=== PATIENT | female | born 1955 | race Caucasian/White ===

== ENCOUNTER → 2017-08-23 | Outpatient (CLI) | payer MEDICARE ==
[~2017-08-23] MED LIST: ACET65TA; BREO1INH INH; COLA100C2; FLAG500T; IPRASOL4 IN; LEVA500T; METO10TA2; PRED10TA2 PO; PROAAER10 INH; TRAM50TA2
--- NOTE | 2017-08-23 14:56 | REP ---
CHEST, TWO VIEWS: COMPARISON: 07/07/2016. I see no evidence of acute infiltrate. Heart is not enlarged. Mediastinal silhouette is unchanged. Metallic clips are seen in the region of the gastroesophageal junction. There are mild degenerative changes of the spine. IMPRESSION: No acute infiltrate. Signed by Torey Pérez MD 08/23/2017 11:58 A
== END ==
LOC: M LRY 10:05
PROVIDERS: ATTEND Nurse Practitioner Family
DX: R06.02 Shortness of breath (principal)
CPT/HCPCS: 71020; 94640; G0463; J2930

== ENCOUNTER → 2017-09-04 | Outpatient (REF) | payer MEDICARE ==
[2017-09-04 11:38] LABS: MEAN CORPUSCULAR HEMOGLOBIN 28.3 pg (27.0-33.0); MEAN CORPUSCULAR HGB CONC 31.7 g/dl (32.0-36.5); MEAN CORPUSCULAR VOLUME 89.5 fl (80.0-96.0); PLATELET COUNT, AUTOMATED 312 10^3/uL (150-450); RED CELL DISTRIBUTION WIDTH 14.7 % (11.5-14.5); WHITE BLOOD COUNT 8.8 10^3/uL (4.0-10.0)
[2017-09-04 11:51] LABS: ANION GAP 7 MEQ/L (8-16); BLOOD UREA NITROGEN 19 MG/DL (7-18); CALCIUM LEVEL 9.1 MG/DL (8.8-10.2); CARBON DIOXIDE LEVEL 32 MEQ/L (21-32); CHLORIDE LEVEL 102 MEQ/L (98-107); CREATININE FOR GFR 0.64 MG/DL (0.55-1.02); GLOMERULAR FILTRATION RATE > 60.0 (>45); GLUCOSE, FASTING 98 MG/DL (80-110); POTASSIUM SERUM 4.7 MEQ/L (3.5-5.1); SODIUM LEVEL 141 MEQ/L (136-145)
== END ==
LOC: M SFHCLERA 08:30
PROVIDERS: ATTEND Family Medicine
DX: J44.9 Chronic obstructive pulmonary disease, unspecified (principal); R09.81 Nasal congestion; G89.28 Other chronic postprocedural pain; M25.551 Pain in right hip; Z23 Encounter for immunization; Z79.899 Other long term (current) drug therapy

== ENCOUNTER 2017-09-07 07:25 | Observation (INO) | payer MEDICARE ==
[~2017-09-07] VITALS: Ht 157.5 cm; Wt 73.9 kg
[~2017-09-07 07:25] MED LIST changes: -BREO1INH INH; -IPRASOL4 IN; -PRED10TA2 PO; -PROAAER10 INH
[2017-09-07] MEDS ORDERED: BREO1INH INH (08:03)
[2017-09-07] MEDS ORDERED: PROAAER10 INH (08:03)
[2017-09-07] MEDS ORDERED: IPRATROPIUM 0.5MG/ALBUTEROL 2.5MG INH SOL UD 3ML (DUONEB)(J7620) NEB ONE (09:00)
[2017-09-07 09:31] LABS: BASO # 0.1 10^3/uL (0.0-0.2); BASO % 0.6 % (0.0-1.0); EOS # 0.3 10^3/uL (0.0-0.50); EOS % 3.1 % (0.0-3.0); IMMATURE GRANULOCYTE % 1.5 % (0-0); LYMPH % 9.1 % (24.0-44.0); MEAN CORPUSCULAR HEMOGLOBIN 28.3 pg (27.0-33.0); MEAN CORPUSCULAR HGB CONC 32.2 g/dl (32.0-36.5); MEAN CORPUSCULAR VOLUME 87.8 fl (80.0-96.0); MONO # 0.3 10^3/uL (0.0-0.8); MONO % 3.1 % (0.0-5.0); NEUTROPHILS # 8.7 10^3/uL (1.8-7.7); NEUTROPHILS % 82.6 % (36.0-66.0); PLATELET COUNT, AUTOMATED 288 10^3/uL (150-450); RED CELL DISTRIBUTION WIDTH 14.6 % (11.5-14.5); WHITE BLOOD COUNT 10.5 10^3/uL (4.0-10.0)
[2017-09-07 09:40] LABS: INR 0.98
[2017-09-07 09:49] LABS: ANION GAP 6 MEQ/L (8-16); BLOOD UREA NITROGEN 19 MG/DL (7-18); CALCIUM LEVEL 8.6 MG/DL (8.8-10.2); CARBON DIOXIDE LEVEL 28 MEQ/L (21-32); CHLORIDE LEVEL 108 MEQ/L (98-107); CREATININE FOR GFR 0.66 MG/DL (0.55-1.02); GLOMERULAR FILTRATION RATE > 60.0 (>45); GLUCOSE, FASTING 131 MG/DL (80-110); POTASSIUM SERUM 4.3 MEQ/L (3.5-5.1); SODIUM LEVEL 142 MEQ/L (136-145)
--- NOTE | 2017-09-07 09:54 | REP ---
Chest one-view HISTORY: Cough Comparison: 08/23/2017 The lungs are clear. The heart is normal in size. The pulmonary vasculature is normal in appearance. Impression: No acute disease. Signed by Ventura Salinas MD 09/07/2017 09:45 A
[2017-09-07 09:55] LABS: ALBUMIN 3.6 GM/DL (3.2-5.2); ALBUMIN/GLOBULIN RATIO 0.95 (1.00-1.93); ALKALINE PHOSPHATASE 132 U/L (45-117); ALT/SGPT 33 U/L (12-78); AST/SGOT 10 U/L (7-37); BILIRUBIN,DIRECT < 0.1 MG/DL (0.0-0.2); BILIRUBIN,TOTAL 0.2 MG/DL (0.2-1.0); TOTAL PROTEIN 7.4 GM/DL (6.4-8.2)
[2017-09-07 10:07] LABS: ABG BASE EXCESS -3.3 (-2.0-2.0); ABG HCO3 21.9 MEQ/L (22.0-26.0); ABG STANDARD HCO3 21.7 MEQ/L (22.0-26.0); ABG TOTAL CO2 23.2 MEQ/L (23.0-31.0); ABG pH (ARTERIAL) 7.357 UNITS (7.350-7.450)
[2017-09-07] MEDS ORDERED: IPRASOL4 IN (11:58)
[2017-09-07] MEDS ORDERED: DEXTROSE 50% 50 ML SYRINGE IV PRN (12:00)
[2017-09-07] MEDS ORDERED: GLUCOSE 4 GM CHEW TABLET PO PRN (12:00)
[2017-09-07] MEDS ORDERED: GLUCAGON FOR INJ 1 MG VIAL (J1610) SC PRN (12:00)
[2017-09-07] MEDS ORDERED: ACETAMINOPHEN TAB 650MG DOSE (2X325MG) PO PRN (12:00)
[2017-09-07] MEDS ORDERED: IPRATROPIUM 0.5MG/ALBUTEROL 2.5MG INH SOL UD 3ML (DUONEB)(J7620) NEB PRN (12:00)
[2017-09-07 12:49] VITALS: O2SAT 87
[2017-09-07 13:20] VITALS: BP 135/63
[2017-09-07] MEDS: PANTOPRAZOLE 40MG TAB (PROTONIX) PO SCH (13:54)
[2017-09-07] MEDS: IPRATROPIUM 0.5MG/ALBUTEROL 2.5MG INH SOL UD 3ML (DUONEB)(J7620) NEB SCH ×3 (14:15→23:24)
[2017-09-07 16:00] VITALS: BP 131/72
--- NOTE | 2017-09-07 17:37 | HPEPDOC ---
General Date of Admission Sep 07, 2017 at 11:55 Chief Complaint The patient is a 62-year-old female Presented to the ER with complaints of difficulty breathing History of Present Illness Patient is a 62-year-old female with a PMHx of COPD (recently diagnosed), chronic back pain and osteoarthritis who presented to the ER with difficulty breathing and wheezing. Patient noted that she also had productive cough with clear/white colored sputum, no evidence of blood in the sputum. Patient denied any chest pain, palpitations. Denied any fever or chills. Noted that she was recently diagnosed with COPD on , 09/04. She was started on Breo, Proair and an albuterol nebulizer to take at home. Patient noted that over the last 2 days shes been having worsening of her breathing and has not had any resolution with her breathing treatments. Patient denies any nausea, vomiting, abdominal pain, constipation or dysuria. She does note some loose stools. She denies any change in her weight, and notes that her appetite has been normal. Home Medications Scheduled Fluticasone/Vilanterol (Breo Ellipta 100-25 Mcg/INH) 1 Inh Inh, 1 PUFF INH DAILY , (Reported) Scheduled PRN Albuterol Sulfate (Proair Hfa) 108 Mcg/Act Aer, 2 PUFF INH Q4H PRN for SHORTNESS OF BREATH, (Reported) Albuterol/Ipratropium (Ipratropium [place]/Albut 0.5-2.5 (3) mg/3Ml) 1 Jayla Jayla, 1 VIAL IN Q6H PRN for SHORTNESS OF BREATH, (Reported) Allergies Coded Allergies: Aspirin (Verified Adverse Reaction, Mild, VOMITS, 01/05/13) Past Medical History Medical History COPD (recently diagnosed), chronic back pain and osteoarthritis Surgical History section Emergent hysterectomy Gastric ulcer resection Bladder repair Appendectomy, questionable Cholecystectomy Back surgery likely laminectomy Family History - Mother with history of stroke - Father history of cancer, unknown Social History - Denies the use of alcohol or illicit drugs; current smoker of 40 years at 1 pack per day - Denies recent travel or sick contacts - Lives with - 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 No appreciable wheezing can be heard - Abdomen: Soft, Non-distended, Non-tender - Extremities: No lower extremity edema, No calf tenderness - Neuro: No focal motor or sensory deficit - Skin: No visible rashes Laboratory Data Labs 24H Laboratory Tests 2 09/07/17 09:17: Immature Granulocyte % (Auto) 1.5H, White Blood Count 10.5H, Red Blood Count 4.67, Hemoglobin 13.2, Hematocrit 41.0, Mean Corpuscular Volume 87.8, Mean Corpuscular Hemoglobin 28.3, Mean Corpuscular Hemoglobin Concent 32.2, Red Cell Distribution Width 14.6H, Platelet Count 288, Neutrophils (%) (Auto) 82.6H, Lymphocytes (%) (Auto) 9.1L, Monocytes (%) (Auto) 3.1, Eosinophils (%) (Auto) 3.1H, Basophils (%) (Auto) 0.6, Neutrophils # (Auto) 8.7H, Lymphocytes # (Auto) 1.0L, Monocytes # (Auto) 0.3, Eosinophils # (Auto) 0.3, Basophils # (Auto) 0.1, Immature Granulocyte # (Auto) 0.2H, Nucleated Red Blood Cells % (auto) 0.0, Prothrombin Time 13.1, Prothromb Time International Ratio 0.98, Anion Gap 6L, Glomerular Filtration Rate > 60.0, Lactic Acid Level 1.7, Blood Urea Nitrogen 19H, Creatinine 0.66, Sodium Level 142, Potassium Level 4.3, Chloride Level 108H , Carbon Dioxide Level 28, Calcium Level 8.6L, Total Creatine Kinase 29, Aspartate Amino Transf (AST/SGOT) 10, Alanine Aminotransferase (ALT/SGPT) 33, Alkaline Phosphatase 132H, Total Bilirubin 0.2, Direct Bilirubin < 0.1, Creatine Kinase MB 1.1, Creatine Kinase MB Relative Index 3.79, Troponin I < 0.02, Total Protein 7.4, Albumin 3.6, Albumin/Globulin Ratio 0.95L, Thyroid Stimulating Hormone (TSH) 0.355L 09/07/17 09:55: Blood Gas Bicarbonate Standard 21.7L, Arterial Blood pH 7.357, Arterial Blood Partial Pressure CO2 40.0, Arterial Blood Partial Pressure O2 86.0, Arterial Blood Total CO2 23.2, Arterial Blood HCO3 21.9L, Arterial Blood Base Excess - 3.3L, Arterial Blood Oxygen Saturation 96.4 09/07/17 14:47: Total Creatine Kinase 46, Creatine Kinase MB 1.4, Creatine Kinase MB Relative Index 3.04, Troponin I < 0.02 CBC/BMP Laboratory Tests 09/07/17 09:17 Red Blood Count 4.67, Mean Corpuscular Volume 87.8, Mean Corpuscular Hemoglobin 28.3, Mean Corpuscular Hemoglobin Concent 32.2, Red Cell Distribution Width 14.6 H, Neutrophils (%) (Auto) 82.6 H, Lymphocytes (%) (Auto) 9.1 L, Monocytes ( %) (Auto) 3.1, Eosinophils (%) (Auto) 3.1 H, Basophils (%) (Auto) 0.6, Neutrophils # (Auto) 8.7 H, Lymphocytes # (Auto) 1.0 L, Monocytes # (Auto) 0.3, Eosinophils # (Auto) 0.3, Basophils # (Auto) 0.1, Calcium Level 8.6 L, Total Creatine Kinase 29 Microbiology Microbiology 09/07/17 Blood Culture, Received Pending 09/07/17 Blood Culture, Received Pending 09/07/17 Gram Stain, Received Pending 09/07/17 Sputum Culture, Received Pending 09/07/17 Influenza Virus Type A Antigen - Final, Complete 09/07/17 Influenza Virus Type B Antigen - Final, Complete Plan / VTE VTE Prophylaxis Ordered?: Yes Plan Plan Dyspnea - likely 2/2 Acute COPD exacerbation - Presented to the ER with complaints of difficulty breathing, wheezing, productive cough - Physical revealed diminished air entry bilaterally - ABG without any significant elevation in PCO2 - Chest x-ray 09/07: No acute disease - s/p dexamethasone 10 mg IV by EMS - Will continue with Solu-Medrol while inpatient - Will switch to Advair while inpatient and continue with DuoNeb scheduled and PRN - c/w supplemental oxygen via nasal cannula Leukocytosis - likely 2/2 reactive etiology, less likely 2/2 infectious etiology - Review of systems negative for any other sources of infection - Remains afebrile - Will hold off on antibiotics Low TSH - Will repeat thyroid function test in AM Chronic back pain and osteoarthritis - c/w Tylenol PRN Gastrointestinal prophylaxis - Will start Protonix DVT prophylaxis - Will start Lovenox LISA CASAS MD Sep 07, 2017 17:37
[2017-09-07] MEDS: methylPREDNISolone INJ 125 MG/2 ML VIAL (J2930) IV SCH (17:42)
--- NOTE | 2017-09-07 18:05 | ECGEPIP ---
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
--- NOTE | 2017-09-07 18:30 | REPUSA ---
HISTORY: Right leg swelling. TECHNIQUE: The right lower extremity venous ultrasound examination was performed with high-resolution jolly scale sonography, color flow Doppler imaging, and spectral waveform analysis, with compression and augmentation procedures performed. FINDINGS: The examination demonstrates normal flow and patency, with demonstration of compression and augmentation, in the greater saphenous vein and in the deep venous system extending from the common femoral vein through the superficial femoral vein, popliteal vein, and visualized calf veins. No intr aluminal filling defects or vascular abnormalities are identified. IMPRESSION: Negative right lower extremity venous ultrasound examination with no evidence of deep vei n thrombosis.
[2017-09-07] MEDS: ADVAIR HFA 230/21MCG INHALER INH SCH (20:23)
[2017-09-07 20:30] VITALS: BP 119/61
[2017-09-08 00:39] VITALS: BP 132/88
[2017-09-08 04:00] VITALS: BP 133/66
[2017-09-08] MEDS: methylPREDNISolone INJ 125 MG/2 ML VIAL (J2930) IV SCH (05:20)
[2017-09-08] MEDS: IPRATROPIUM 0.5MG/ALBUTEROL 2.5MG INH SOL UD 3ML (DUONEB)(J7620) NEB SCH ×4 (08:00→19:45)
[2017-09-08] MEDS: ENOXAPARIN 40 MG/0.4 ML SYRINGE (J1650) SC SCH (08:07)
[2017-09-08] MEDS: PANTOPRAZOLE 40MG TAB (PROTONIX) PO SCH (08:07)
[2017-09-08 08:08] LABS: BASO % 0.2 % (0.0-1.0); EOS % 0.2 % (0.0-3.0); IMMATURE GRANULOCYTE % 1.6 % (0-0); LYMPH # 1.1 10^3/uL (1.5-4.5); LYMPH % 8.6 % (24.0-44.0); MEAN CORPUSCULAR HEMOGLOBIN 27.9 pg (27.0-33.0); MEAN CORPUSCULAR VOLUME 87.2 fl (80.0-96.0); MONO # 0.6 10^3/uL (0.0-0.8); MONO % 4.6 % (0.0-5.0); NEUTROPHILS # 10.6 10^3/uL (1.8-7.7); NEUTROPHILS % 84.8 % (36.0-66.0); PLATELET COUNT, AUTOMATED 324 10^3/uL (150-450); RED CELL DISTRIBUTION WIDTH 14.5 % (11.5-14.5); WHITE BLOOD COUNT 12.5 10^3/uL (4.0-10.0)
[2017-09-08 08:35] LABS: ALBUMIN 3.6 GM/DL (3.2-5.2); ALBUMIN/GLOBULIN RATIO 0.92 (1.00-1.93); ALKALINE PHOSPHATASE 126 U/L (45-117); ALT/SGPT 31 U/L (12-78); ANION GAP 8 MEQ/L (8-16); AST/SGOT 10 U/L (7-37); BILIRUBIN,TOTAL 0.4 MG/DL (0.2-1.0); BLOOD UREA NITROGEN 16 MG/DL (7-18); CALCIUM LEVEL 9.3 MG/DL (8.8-10.2); CARBON DIOXIDE LEVEL 27 MEQ/L (21-32); CHLORIDE LEVEL 104 MEQ/L (98-107); CREATININE FOR GFR 0.77 MG/DL (0.55-1.02); FREE T4 1.13 NG/DL (0.76-1.46); GLOMERULAR FILTRATION RATE > 60.0 (>45); GLUCOSE, FASTING 135 MG/DL (80-110); MAGNESIUM LEVEL 1.9 MG/DL (1.8-2.4); POTASSIUM SERUM 4.5 MEQ/L (3.5-5.1); SODIUM LEVEL 139 MEQ/L (136-145); TOTAL PROTEIN 7.5 GM/DL (6.4-8.2)
[2017-09-08] MEDS: ADVAIR HFA 230/21MCG INHALER INH SCH ×2 (08:35→19:45)
[2017-09-08 10:00] VITALS: BP 129/76
[2017-09-08 14:02] VITALS: BP 140/65
--- NOTE | 2017-09-08 14:28 | IPNPDOC ---
Text Note Date of Service The patient was seen on 09/08/17. NOTE Subjective: Patient is a 62-year-old female with a PMHx of COPD (recently diagnosed), chronic back pain and osteoarthritis who presented to the ER with difficulty breathing and wheezing. She was admitted for acute COPD exacerbation. Patient was seen and examined at the bedside. She has noted improvement in her breathing. She denies any chest pain, palpitations or cough. Still seen on nasal cannula oxygen. Objective: Vitals (See below) General: Lying in bed, no acute distress, comfortable, AAOx3 HEENT: NC, AT CVS: RRR, +S1S2 Lungs: Fair air entry b/l, no appreciable wheezing Abdomen: Soft, ND, NT Extremities: - Edema, - Calf tenderness Assessment and plan: Dyspnea - likely 2/2 Acute COPD exacerbation - Clinically has improvement in her breathing - Physical without appreciable wheezing - Chest x-ray 09/07: No acute disease - s/p dexamethasone 10 mg IV by EMS; c/w Solumedrol IV; will begin to taper - c/w Advair, DuoNeb scheduled and PRN - c/w supplemental oxygen via nasal cannula Leukocytosis - likely 2/2 reactive etiology, less likely 2/2 infectious etiology - Review of systems negative for any other sources of infection - Remains afebrile - Will hold off on antibiotics Subclinical hyperthyroidism - Low TSH on repeat; normal Free T4 and Total T3 Chronic back pain and osteoarthritis - c/w Tylenol PRN Gastrointestinal prophylaxis - c/w Protonix DVT prophylaxis - c/w Lovenox VS,Fishbone, I+O VS, Fishbone, I+O Laboratory Tests 09/08/17 07:38 Red Blood Count 4.70, Mean Corpuscular Volume 87.2, Mean Corpuscular Hemoglobin 27.9, Mean Corpuscular Hemoglobin Concent 32.0, Red Cell Distribution Width 14.5 , Neutrophils (%) (Auto) 84.8 H, Lymphocytes (%) (Auto) 8.6 L, Monocytes (%) ( Auto) 4.6, Eosinophils (%) (Auto) 0.2, Basophils (%) (Auto) 0.2, Neutrophils # ( Auto) 10.6 H, Lymphocytes # (Auto) 1.1 L, Monocytes # (Auto) 0.6, Eosinophils # (Auto) 0.0, Basophils # (Auto) 0.0, Calcium Level 9.3, Aspartate Amino Transf ( AST/SGOT) 10, Alanine Aminotransferase (ALT/SGPT) 31, Alkaline Phosphatase 126 H , Total Bilirubin 0.4 #, Total Protein 7.5, Albumin 3.6 Vital Signs Date Time Temp Pulse Resp B/P (MAP) Pulse Ox O2 Delivery O2 Flow Rate FiO2 09/08/17 14:02 99.0 91 16 140/65 (90) 91 Room Air 09/08/17 10:00 2.0 I&O- Last 24 Hours up to 6 AM 09/09/17 06:00 Intake Total 720 ml Balance 720 ml LISA CASAS MD Sep 08, 2017 14:28
[2017-09-08] MEDS: methylPREDNISolone INJ 40 MG/1 ML VIAL (J2920) IV SCH (17:13)
[2017-09-08 18:23] VITALS: BP 132/62
[2017-09-08 21:00] VITALS: BP 102/63
[2017-09-09 00:30] VITALS: BP 143/69
[2017-09-09] MEDS: IPRATROPIUM 0.5MG/ALBUTEROL 2.5MG INH SOL UD 3ML (DUONEB)(J7620) NEB SCH ×3 (02:00→14:29)
[2017-09-09 04:15] VITALS: BP 113/53
[2017-09-09] MEDS: methylPREDNISolone INJ 40 MG/1 ML VIAL (J2920) IV SCH (06:47)
[2017-09-09 06:48] LABS: BASO % 0.2 % (0.0-1.0); EOS % 0.1 % (0.0-3.0); IMMATURE GRANULOCYTE % 1.3 % (0-0); LYMPH # 1.8 10^3/uL (1.5-4.5); LYMPH % 13.3 % (24.0-44.0); MEAN CORPUSCULAR HEMOGLOBIN 28.1 pg (27.0-33.0); MEAN CORPUSCULAR HGB CONC 32.8 g/dl (32.0-36.5); MEAN CORPUSCULAR VOLUME 85.7 fl (80.0-96.0); MONO % 7.2 % (0.0-5.0); NEUTROPHILS # 10.7 10^3/uL (1.8-7.7); NEUTROPHILS % 77.9 % (36.0-66.0); PLATELET COUNT, AUTOMATED 286 10^3/uL (150-450); RED CELL DISTRIBUTION WIDTH 14.3 % (11.5-14.5); WHITE BLOOD COUNT 13.8 10^3/uL (4.0-10.0)
[2017-09-09 07:02] LABS: ALBUMIN 3.3 GM/DL (3.2-5.2); ALBUMIN/GLOBULIN RATIO 0.94 (1.00-1.93); ALKALINE PHOSPHATASE 110 U/L (45-117); ALT/SGPT 29 U/L (12-78); ANION GAP 5 MEQ/L (8-16); AST/SGOT 13 U/L (7-37); BILIRUBIN,TOTAL 0.3 MG/DL (0.2-1.0); BLOOD UREA NITROGEN 25 MG/DL (7-18); CALCIUM LEVEL 9.3 MG/DL (8.8-10.2); CARBON DIOXIDE LEVEL 31 MEQ/L (21-32); CHLORIDE LEVEL 104 MEQ/L (98-107); CREATININE FOR GFR 0.69 MG/DL (0.55-1.02); GLOMERULAR FILTRATION RATE > 60.0 (>45); GLUCOSE, FASTING 111 MG/DL (80-110); MAGNESIUM LEVEL 2.2 MG/DL (1.8-2.4); POTASSIUM SERUM 4.1 MEQ/L (3.5-5.1); SODIUM LEVEL 140 MEQ/L (136-145); TOTAL PROTEIN 6.8 GM/DL (6.4-8.2)
[2017-09-09 08:00] VITALS: BP 153/69
[2017-09-09] MEDS: PANTOPRAZOLE 40MG TAB (PROTONIX) PO SCH (08:36)
[2017-09-09] MEDS: ENOXAPARIN 40 MG/0.4 ML SYRINGE (J1650) SC SCH (08:36)
[2017-09-09] MEDS: ADVAIR HFA 230/21MCG INHALER INH SCH (08:47)
[2017-09-09 12:00] VITALS: BP 132/65
[2017-09-09] MEDS ORDERED: PRED10TA2 PO (14:41)
--- NOTE | 2017-09-09 15:02 | DSES ---
DATE OF ADMISSION: 09/07/2017 DATE OF DISCHARGE: 09/09/2017 ATTENDING PHYSICIAN: Stephanie Gomez MD DICTATED BY: Stephanie Gomez MD PRIMARY CARE PHYSICIAN: Dr. Torey Dillard REFERRING PHYSICIAN: None. CONSULTING PHYSICIAN: None. CONDITION ON DISCHARGE: Stable. FINAL DIAGNOSIS: Acute chronic obstructive pulmonary disease (COPD) exacerbation. PROCEDURES: None. HISTORY OF PRESENT ILLNESS: The patient is a 52-year-old female with a past medical history of COPD, recently diagnosed, chronic back pain and osteoarthritis, who presented to the emergency room with difficulty breathing and wheezing and was found to have acute COPD exacerbation. HOSPITAL COURSE: 1. COPD exacerbation. She had improvement in her breathing throughout her hospital course. She did not require any more supplemental oxygen. She has been ambulating without dropping her saturation less than 90%. Chest x-ray had been completed on 09/07/2017, which revealed no active disease. The patient has received dexamethasone 10 mg IV by emergency medical services (EMS). She then was continued on Solu-Medrol throughout the hospital course and then she will be transitioned to prednisone upon discharge. The patient will be continued with Melina as an outpatient. 2. Leukocytosis, likely secondary to reactive etiology, less likely secondary to infectious etiology. Review of systems has been negative for any source of infection. She remains afebrile. She has not been started on antibiotics. 3. Subclinical hypothyroidism. Low TSH on repeat. Normal Free T4 and T3. 4. Chronic back pain and osteoarthritis. Continue with Tylenol as needed. 5. Gastrointestinal prophylaxis. She is on Protonix. 6. Deep vein thrombosis (DVT) prophylaxis. She has been on Lovenox. DISCHARGE MEDICATIONS: The patient will be discharged home on the following medication list: - prednisone 10 mg to be taken as directed - albuterol sulfate two puffs inhaled every 4 hours as needed for shortness of breath - albuterol/ipratropium nebulization every 6 hours as needed for shortness of breath - Breo Ellipta one puff inhaled daily Discharge instructions: The patient has been advised to followup with her primary care provider, Dr. Torey Dillard, within the next 7 days. She has been advised to remain compliant with treatment plan and medications and return to the emergency room if she experiences any problems. Time spent on discharge: Greater than 35 minutes. edited: 09/10/2017 1439 tkf MTDD
== END 2017-09-09 15:45 | disposition home or self-care (01) ==
LOC: M ED 07:25 → M ED INP 11:55 → M MS4PR 13:25
PROVIDERS: ADMIT Internal Medicine; ATTEND Internal Medicine
DX: J44.1 Chronic obstructive pulmonary disease with (acute) exacerbation (principal); R22.41 Localized swelling, mass and lump, right lower limb; D72.829 Elevated white blood cell count, unspecified; E03.9 Hypothyroidism, unspecified; K21.9 Gastro-esophageal reflux disease without esophagitis; M54.5 Low back pain; Z79.899 Other long term (current) drug therapy; Z79.51 Long term (current) use of inhaled steroids; Z79.52 Long term (current) use of systemic steroids; Z88.8 Allergy status to other drugs, medicaments and biological substances
CPT/HCPCS: 36415; 36600; 71010; 80048; 80053; 80076; 82550; 82553; 82803; 83605; 83735; 84439; 84443; 84480; 84484; 85025; 85610; 87040; 87070; 87205; 87804; 93005; 93041; 93971; 94640; 96372; 96374; 96376; 97161; 99285; G0378; G8978; G8979; G8980; J1650; J2920; J2930

== ENCOUNTER → 2017-10-30 | Outpatient (REF) | payer MEDICARE ==
[2017-10-30 11:35] LABS: BASO % 0.6 % (0.0-1.0); EOS # 0.2 10^3/uL (0.0-0.50); EOS % 2.7 % (0.0-3.0); HEMATOCRIT 40.7 % (36.0-47.0); HEMOGLOBIN 12.8 g/dl (12.0-16.0); IMMATURE GRANULOCYTE % 0.4 % (0-0); LYMPH # 2.2 10^3/uL (1.5-4.5); LYMPH % 32.2 % (24.0-44.0); MEAN CORPUSCULAR HEMOGLOBIN 27.5 pg (27.0-33.0); MEAN CORPUSCULAR HGB CONC 31.4 g/dl (32.0-36.5); MEAN CORPUSCULAR VOLUME 87.3 fl (80.0-96.0); MONO # 0.6 10^3/uL (0.0-0.8); MONO % 9.2 % (0.0-5.0); NEUTROPHILS # 3.7 10^3/uL (1.8-7.7); NEUTROPHILS % 54.9 % (36.0-66.0); PLATELET COUNT, AUTOMATED 290 10^3/uL (150-450); RED BLOOD COUNT 4.66 10^6/uL (4.00-5.40); RED CELL DISTRIBUTION WIDTH 13.8 % (11.5-14.5); WHITE BLOOD COUNT 6.7 10^3/uL (4.0-10.0)
[2017-10-30 12:09] LABS: THYROID STIMULATING HORMONE 0.719 uIU/ML (0.358-3.740)
== END ==
LOC: M SFHCLERA 09:16
DX: R94.6 Abnormal results of thyroid function studies (principal); D72.829 Elevated white blood cell count, unspecified
CPT/HCPCS: 84443

== ENCOUNTER → 2017-12-18 | Outpatient (REF) | payer MEDICARE ==
[2017-12-18 17:15] LABS: ANION GAP 12 MEQ/L (8-16); BLOOD UREA NITROGEN 15 MG/DL (7-18); CALCIUM LEVEL 9.1 MG/DL (8.8-10.2); CARBON DIOXIDE LEVEL 26 MEQ/L (21-32); CHLORIDE LEVEL 105 MEQ/L (98-107); CREATININE FOR GFR 0.72 MG/DL (0.55-1.30); GLOMERULAR FILTRATION RATE > 60.0 (>45); GLUCOSE, FASTING 98 MG/DL (70-100); MAGNESIUM LEVEL 2.1 MG/DL (1.8-2.4); POTASSIUM SERUM 4.4 MEQ/L (3.5-5.1); SODIUM LEVEL 143 MEQ/L (136-145)
== END ==
LOC: M SFHCLERA 12:12
DX: M79.89 Other specified soft tissue disorders (principal)
CPT/HCPCS: 83735

== ENCOUNTER 2018-03-02 16:17 | Emergency (ER) | payer MEDICARE ==
[2018-03-02] MEDS: NS 1,000 ML IV (18:39)
[2018-03-02] MEDS: MORPHINE 2 MG/ML 1ML SYRINGE (J2270) IV (18:40)
[2018-03-02] MEDS: ONDANSETRON 4MG/2ML VIAL (J2405) IV (18:40)
[2018-03-02 18:59] LABS: LACTIC ACID SEPSIS PROTOCOL 0.8 MMOL/L (0.4-2.0)
[2018-03-02 19:59] LABS: BASO # 0.1 10^3/uL (0.0-0.2); BASO % 0.5 % (0.0-1.0); EOS # 0.2 10^3/uL (0.0-0.50); EOS % 2.4 % (0.0-3.0); HEMATOCRIT 38.2 % (36.0-47.0); HEMOGLOBIN 12.3 g/dl (12.0-15.5); IMMATURE GRANULOCYTE % 0.4 % (0-3.0); LYMPH # 2.5 10^3/uL (1.5-4.5); LYMPH % 27.2 % (24.0-44.0); MEAN CORPUSCULAR HEMOGLOBIN 27.4 pg (27.0-33.0); MEAN CORPUSCULAR HGB CONC 32.2 g/dl (32.0-36.5); MEAN CORPUSCULAR VOLUME 85.1 fl (80.0-96.0); MONO # 0.7 10^3/uL (0.0-0.8); MONO % 7.6 % (0.0-5.0); NEUTROPHILS # 5.7 10^3/uL (1.8-7.7); NEUTROPHILS % 61.9 % (36.0-66.0); PLATELET COUNT, AUTOMATED 295 10^3/uL (150-450); RED BLOOD COUNT 4.49 10^6/uL (4.00-5.40); RED CELL DISTRIBUTION WIDTH 13.1 % (11.5-14.5); WHITE BLOOD COUNT 9.1 10^3/uL (4.0-10.0)
[2018-03-02] MEDS: PROMETHAZINE INJ 25 MG/ML VIAL (J2550) IV (20:11)
[2018-03-02 20:22] LABS: ALBUMIN 3.8 GM/DL (3.2-5.2); ALBUMIN/GLOBULIN RATIO 1.23 (1.00-1.93); ALKALINE PHOSPHATASE 124 U/L (45-117); ALT/SGPT 23 U/L (12-78); ANION GAP 7 MEQ/L (8-16); AST/SGOT 13 U/L (7-37); BILIRUBIN,DIRECT < 0.1 MG/DL (0.0-0.2); BILIRUBIN,TOTAL 0.3 MG/DL (0.2-1.0); BLOOD UREA NITROGEN 14 MG/DL (7-18); CALCIUM LEVEL 8.1 MG/DL (8.8-10.2); CARBON DIOXIDE LEVEL 24 MEQ/L (21-32); CHLORIDE LEVEL 112 MEQ/L (98-107); CREATININE FOR GFR 0.59 MG/DL (0.55-1.30); GLOMERULAR FILTRATION RATE > 60.0 (>45); GLUCOSE, FASTING 97 MG/DL (70-100); LIPASE 96 U/L (73-393); POTASSIUM SERUM 4.1 MEQ/L (3.5-5.1); SODIUM LEVEL 143 MEQ/L (136-145); TOTAL PROTEIN 6.9 GM/DL (6.4-8.2)
[2018-03-02] MEDS ORDERED: ISOVUE-370 76% 100ML VIAL (Q9967) As Ordered (20:39)
[2018-03-02 21:25] LABS: KETONE, URINE AUTO RFX NEGATIVE (NEGATIVE); MUCUS, URINE RFX SMALL (NEGATIVE); RBC, URINE AUTO RFX 1 /HPF (0-3); SQUAM EPITHELIAL CELL UR AURFX 1 /HPF (0-6)
[2018-03-02 21:28] LABS: LEUKOCYTE ESTERASE UR AUTO RFX TRACE (NEGATIVE); NITRITE, URINE AUTO RFX POSITIVE (NEGATIVE); WBC, URINE AUTO RFX 12 /HPF (0-3)
[2018-03-02] MEDS ORDERED: CIPROFLOXACIN 500 MG TAB PO (22:15)
== END 2018-03-02 22:11 | disposition home or self-care (01) ==
LOC: M ED 16:17
DX: N30.90 Cystitis, unspecified without hematuria (principal); K59.00 Constipation, unspecified; N28.1 Cyst of kidney, acquired; E11.9 Type 2 diabetes mellitus without complications; J45.909 Unspecified asthma, uncomplicated; J44.9 Chronic obstructive pulmonary disease, unspecified; Z87.19 Personal history of other diseases of the digestive system; Z79.899 Other long term (current) drug therapy; Z79.51 Long term (current) use of inhaled steroids; Z88.8 Allergy status to other drugs, medicaments and biological substances
CPT/HCPCS: J2405

== ENCOUNTER 2018-08-28 16:32 | Emergency (ER) | payer BC, MEDICARE ==
[2018-08-28] MEDS ORDERED: ONDANSETRON 4MG/2ML VIAL (J2405) IV (16:45)
[2018-08-28] MEDS: IPRATROPIUM 0.5MG/ALBUTEROL 2.5MG INH SOL UD 3ML (DUONEB)(J7620) NEB (17:13)
[2018-08-28] MEDS: ONDANSETRON 4MG/2ML VIAL (J2405) IV (17:30)
[2018-08-28 17:44] LABS: VENOUS BASE EXCESS 0.9 (-2.0-2.0); VENOUS HCO3 25.9 MEQ/L (23.0-27.0); VENOUS O2 SATURATION 97.6 % (60.0-80.0); VENOUS PARTIAL PRESSURE CO2 42.4 mmHg (38.0-50.0); VENOUS PH 7.403 UNITS (7.330-7.430); VENOUS STANDARD HCO3 25.3 MEQ/L; VENOUS TOTAL CO2 27.2 MEQ/L (24.0-28.0)
[2018-08-28 17:48] LABS: BASO % 0.4 % (0.0-1.0); EOS # 0.2 10^3/uL (0.0-0.50); EOS % 2.1 % (0.0-3.0); HEMATOCRIT 37.9 % (36.0-47.0); IMMATURE GRANULOCYTE % 1.1 % (0-3.0); LYMPH # 1.6 10^3/uL (1.5-4.5); LYMPH % 14.2 % (24.0-44.0); MEAN CORPUSCULAR HEMOGLOBIN 27.8 pg (27.0-33.0); MEAN CORPUSCULAR HGB CONC 31.7 g/dl (32.0-36.5); MEAN CORPUSCULAR VOLUME 87.7 fl (80.0-96.0); MONO # 1.1 10^3/uL (0.0-0.8); MONO % 9.7 % (0.0-5.0); NEUTROPHILS % 72.5 % (36.0-66.0); PLATELET COUNT, AUTOMATED 277 10^3/uL (150-450); RED BLOOD COUNT 4.32 10^6/uL (4.00-5.40); RED CELL DISTRIBUTION WIDTH 13.7 % (11.5-14.5); WHITE BLOOD COUNT 11.1 10^3/uL (4.0-10.0)
[2018-08-28 18:02] LABS: INR 1.04; PROTHROMBIN TIME 13.7 SECONDS (12.1-14.4)
[2018-08-28 18:07] LABS: ALBUMIN 3.4 GM/DL (3.2-5.2); ALBUMIN/GLOBULIN RATIO 0.97 (1.00-1.93); ALKALINE PHOSPHATASE 192 U/L (45-117); ALT/SGPT 54 U/L (12-78); ANION GAP 8 MEQ/L (8-16); AST/SGOT 33 U/L (7-37); BILIRUBIN,DIRECT 0.2 MG/DL (0.0-0.2); BILIRUBIN,TOTAL 0.4 MG/DL (0.2-1.0); BLOOD UREA NITROGEN 11 MG/DL (7-18); CALCIUM LEVEL 8.7 MG/DL (8.8-10.2); CARBON DIOXIDE LEVEL 25 MEQ/L (21-32); CHLORIDE LEVEL 105 MEQ/L (98-107); CK-MB VALUE MASS < 1.0 NG/ML (<3.6); CPK CREATINE PHOSPHOKINASE 35 U/L (26-192); CREATININE FOR GFR 0.57 MG/DL (0.55-1.30); GLOMERULAR FILTRATION RATE > 60.0 (>45); GLUCOSE, FASTING 101 MG/DL (70-100); LIPASE 78 U/L (73-393); MB/CK RELATIVE INDEX 2.86 (< OR =4); NT-PRO BNP 35 PG/ML (<125); POTASSIUM SERUM 4.2 MEQ/L (3.5-5.1); SODIUM LEVEL 138 MEQ/L (136-145); THYROID STIMULATING HORMONE 0.748 uIU/ML (0.358-3.740); TOTAL PROTEIN 6.9 GM/DL (6.4-8.2); TROPONIN I < 0.02 NG/ML (< 0.10)
[2018-08-28] MEDS ORDERED: ISOVUE-370 76% 100ML VIAL (Q9967) As Ordered (18:22)
[2018-08-28] MEDS: MORPHINE 4 MG/ML 1ML VIAL/SYRINGE (J2270) IV (18:24)
[2018-08-28 23:10] LABS: CK-MB VALUE MASS < 1.0 NG/ML (<3.6); CPK CREATINE PHOSPHOKINASE 36 U/L (26-192); MB/CK RELATIVE INDEX 2.78 (< OR =4); TROPONIN I < 0.02 NG/ML (< 0.10)
[2018-08-28] MEDS: NORCO 5/325MG TABLET (BULK FOR ED) PO (23:40)
[2018-08-28] MEDS: LevoFLOXacin 750 MG TABLET PO (23:40)
== END 2018-08-29 00:02 | disposition home or self-care (01) ==
LOC: M ED 08-29 00:02
DX: J18.9 Pneumonia, unspecified organism (principal); R07.1 Chest pain on breathing; R91.8 Other nonspecific abnormal finding of lung field; J44.9 Chronic obstructive pulmonary disease, unspecified; M54.5 Low back pain; G62.9 Polyneuropathy, unspecified; Z87.891 Personal history of nicotine dependence; Z88.6 Allergy status to analgesic agent; Z79.899 Other long term (current) drug therapy; Z79.51 Long term (current) use of inhaled steroids
CPT/HCPCS: J2270

== ENCOUNTER → 2018-11-23 | Outpatient (CLI) | payer MEDICARE ==
[~2018-11-23] MED LIST changes: +BREO1INH INH; +CIPR-249 PO; +DOXY-350 PO; +GABA-843; +IPRA0.00 IN; +MIRA3350 PO; +NORC1TAB4 PO; +PRED10TA2 PO; +PRED20TA PO; +PROAAER10 INH; +ZOFR4TAB14 PO
--- NOTE | 2018-11-23 11:13 | REP ---
Chest two views HISTORY: Lung consolidation Comparison: 08/28/2018 The lungs are clear. The heart is normal in size. The pulmonary vasculature is normal in appearance. The bony structure is intact. IMPRESSION: No acute disease. Electronically Signed by Ventura Salinas MD 11/23/2018 11:04 A
== END ==
LOC: M LRY 10:40
PROVIDERS: ATTEND Family Medicine
DX: J18.1 Lobar pneumonia, unspecified organism (principal)

== ENCOUNTER → 2018-11-23 | Outpatient (REF) | payer MEDICARE | LOC: M SFHCLERA 15:51 | PROVIDERS: ATTEND Nurse Practitioner Family | DX: R30.0 Dysuria (principal) ==

== ENCOUNTER → 2019-03-08 | Outpatient (CLI) | payer MEDICARE ==
[~2019-03-08] MED LIST changes: -NORC1TAB4 PO; +NORC1TAB7 PO
--- NOTE | 2019-03-08 19:47 | REP ---
REASON: Wheezing. COMPARISON: Multiple, the latest 11/23/2018 FINDINGS: The superior mediastinal structures are midline. The cardiac silhouette is unremarkable in size, shape, and position. The diaphragmatic surfaces of the lungs are regular, and the costophrenic angles are clear. The pulmonary feliz are clear. The imaged osseous structures are intact. IMPRESSION: There is no acute cardiopulmonary disease. Electronically Signed by Atif Koroma DO 03/08/2019 07:51 P
== END ==
LOC: M LRY 18:17
PROVIDERS: ATTEND Physician Assistant
DX: R06.2 Wheezing (principal)

== ENCOUNTER 2019-04-22 01:08 | Emergency (ER) | payer MEDICARE ==
[~2019-04-22] VITALS: Ht 160 cm; Wt 89.7 kg
[2019-04-22 01:36] VITALS: BP 134/63
[2019-04-22] MEDS ORDERED: LIDOCAINE 1% MDV 20ML VIAL IM ONE (02:00)
== END 2019-04-22 02:15 | disposition home or self-care (01) ==
LOC: M ED 01:08
DX: H92.01 Otalgia, right ear (principal); J44.9 Chronic obstructive pulmonary disease, unspecified; E11.9 Type 2 diabetes mellitus without complications; Z79.899 Other long term (current) drug therapy; Z88.8 Allergy status to other drugs, medicaments and biological substances

== ENCOUNTER → 2019-08-12 | Outpatient (REF) | payer MEDICARE ==
[2019-08-12 21:08] LABS: ALT/SGPT 28 U/L (12-78); BILIRUBIN,TOTAL 0.3 MG/DL (0.2-1.0); BLOOD UREA NITROGEN 17 MG/DL (7-18); CALCIUM LEVEL 9.3 MG/DL (8.8-10.2); CARBON DIOXIDE LEVEL 29 MEQ/L (21-32); CHLORIDE LEVEL 107 MEQ/L (98-107); CREATININE FOR GFR 0.72 MG/DL (0.55-1.30); GLOMERULAR FILTRATION RATE > 60.0 (>45); GLUCOSE, FASTING 90 MG/DL (70-100); SODIUM LEVEL 143 MEQ/L (136-145); TRIGLYCERIDES LEVEL 114 MG/DL (<150)
[2019-08-12 21:09] LABS: ALBUMIN 4.2 GM/DL (3.2-5.2); CHOLESTEROL LEVEL 163 MG/DL (<200); CHOLESTEROL RISK RATIO 1.791 (<5); FREE T4 1.04 NG/DL (0.76-1.46); HDL CHOLESTEROL 91 MG/DL (>40); LDL CHOLESTEROL 49 MG/DL (<100); NON-HDL-C 72 MG/DL; THYROID STIMULATING HORMONE 0.703 uIU/ML (0.358-3.740); TOTAL PROTEIN 7.8 GM/DL (6.4-8.2)
== END ==
LOC: M SFHCLERA 16:34
PROVIDERS: ATTEND Family Medicine
DX: E66.9 Obesity, unspecified (principal); Z79.899 Other long term (current) drug therapy

== ENCOUNTER → 2020-08-24 | Outpatient (CLI) | payer MEDICARE ==
[2020-08-24 12:56] LABS: BASO % 0.5 % (0.0-1.0); EOS # 0.1 10^3/uL (0.0-0.5); EOS % 1.9 % (0.0-3.0); HEMATOCRIT 42.8 % (36.0-47.0); HEMOGLOBIN 13.3 g/dl (12.0-15.5); LYMPH # 2.1 10^3/uL (1.5-5.0); LYMPH % 33.4 % (24.0-44.0); MEAN CORPUSCULAR HEMOGLOBIN 27.4 pg (27.0-33.0); MEAN CORPUSCULAR HGB CONC 31.1 g/dl (32.0-36.5); MEAN CORPUSCULAR VOLUME 88.2 fl (80.0-96.0); MONO # 0.5 10^3/uL (0.0-0.8); MONO % 8.6 % (0.0-5.0); NEUTROPHILS # 3.4 10^3/uL (1.5-8.5); NEUTROPHILS % 54.6 % (36.0-66.0); PLATELET COUNT, AUTOMATED 289 10^3/uL (150-450); RED BLOOD COUNT 4.85 10^6/uL (4.00-5.40); WHITE BLOOD COUNT 6.3 10^3/uL (4.0-10.0)
[2020-08-24 13:28] LABS: ALBUMIN 3.9 GM/DL (3.2-5.2); ALT/SGPT 33 U/L (12-78); BILIRUBIN,TOTAL 0.4 MG/DL (0.2-1.0); BLOOD UREA NITROGEN 16 MG/DL (7-18); CARBON DIOXIDE LEVEL 27 MEQ/L (21-32); CHLORIDE LEVEL 105 MEQ/L (98-107); CHOLESTEROL LEVEL 167 MG/DL (<200); CHOLESTEROL RISK RATIO 2.061 (<5); CREATININE FOR GFR 0.68 MG/DL (0.55-1.30); GLOMERULAR FILTRATION RATE > 60.0 (>45); GLUCOSE, FASTING 93 MG/DL (70-100); HDL CHOLESTEROL 81 MG/DL (>40); LDL CHOLESTEROL 62 MG/DL (<100); NON-HDL-C 86 MG/DL; POTASSIUM SERUM 4.7 MEQ/L (3.5-5.1); SODIUM LEVEL 138 MEQ/L (136-145); TOTAL PROTEIN 6.9 GM/DL (6.4-8.2); TRIGLYCERIDES LEVEL 121 MG/DL (<150)
[2020-08-24 13:58] LABS: HEMOGLOBIN A1c 5.6 %
== END ==
LOC: M WUC 09:34
PROVIDERS: ATTEND Family Medicine
DX: R73.03 Prediabetes (principal); Z13.220 Encounter for screening for lipoid disorders; E78.5 Hyperlipidemia, unspecified

== ENCOUNTER 2021-07-21 18:24 | Emergency (ER) | payer MEDICARE ==
[~2021-07-21] VITALS: Ht 160 cm; Wt 93.4 kg
[~2021-07-21 18:24] MED LIST changes: +GABA-282; -GABA-843
[2021-07-21 18:25] VITALS: BP 165/74
--- OUTSIDE RECORDS SUMMARY | 2021-07-21 18:29 | CCD ---
Author Author [facility] Organization [facility] Address Unknown Phone Unavailable Support Name Relationship Address Phone [facility] [place] [address] Unavailable CABRERA SALAS Next Of Kin [address] [place] [phone] Cabrera Silva ECON [address] [address] Unavailable Cabrera salas ECON [address] [facility] [place] [phone] Cabrera Salas Unknown Re-disclosure Warning The records that you are about to access may contain information from federally-assisted alcohol or drug abuse programs. If such information is present, then the following federally mandated warning applies: This information has been disclosed to you from records protected by federal confidentiality rules (42 CFR part 2). The federal rules prohibit you from making any further disclosure of this information unless further disclosure is expressly permitted by the written consent of the person to whom it pertains or as otherwise permitted by 42 CFR part 2. A general authorization for the release of medical or other information is NOT sufficient for this purpose. The Federal rules restrict any use of the information to criminally investigate or prosecute any alcohol or drug abuse patient.The records that you are about to access may contain highly sensitive health information, the redisclosure of which is protected by Article 27-F of the [facility] Public Health law. If you continue you may have access to information: Regarding HIV / AIDS; Provided by facilities licensed or operated by the [facility] Office of Mental Health; or Provided by the [facility] Office for People With Developmental Disabilities. If such information is present, then the following [facility] mandated warning applies: This information has been disclosed to you from confidential records which are protected by state law. State law prohibits you from making any further disclosure of this information without the specific written consent of the person to whom it pertains, or as otherwise permitted by law. Any unauthorized further disclosure in violation of state law may result in a fine or longterm sentence or both. A general authorization for the release of medical or other information is NOT sufficient authorization for further disc losure. Encounters Encounter Providers Location Date Indications Data Source(s ) [place] [address] [facility] [address] 05/29/2021 12:00:00 AM EDT eCW1 ([facility]) [place] [address] [facility] [facility] [address] 05/21/2021 12:00:00 AM EDT eCW1 ([facility]) [place] [address] [facility] [address] 03/14/2021 12:00:00 AM EDT eCW1 ([facility]) [place] [address] [facility] [address] 10/31/2020 12:00:00 AM EST eCW1 ([facility]) [place] [address] [facility] [address] 09/07/2020 12:00:00 AM EST eCW1 ([facility]) Immunizations Vaccine Date Status Description Data Source(s) COVID-19 VACCINE Moderna 01/19/2021 12:00:00 AM EDT completed [facility] Vaccine Series Complete: YESThis Data wa s Submitted to [facility] Via [employer]. COVID-19 VACCINE Moderna 12/22/2020 12:00:00 AM EDT completed [facility] Vaccine Series Complete: NOThis Data was Submitted to [facility] Via [employer]. influenza, recombinant, quadrIvalent,injectable, prese rvative free 09/07/2020 10:25:00 AM EST completed [facility]CW1 [facility]) influenza, recombinant, quadrIvalent,injectable, prese rvative free 09/07/2020 10:25:00 AM EST completed eCW1 ([facility] hospital) influenza, recombinant, quadrIvalent,injectable, prese rvative free 09/07/2020 10:25:00 AM EST completed eCW1 ([facility] hospital) influenza, recombinant, quadrIvalent,injectable, prese rvative free 09/07/2020 10:25:00 AM EST completed eCW1 (Critical access hospital) influenza, recombinant, quadrIvalent,injectable, prese rvative free 09/07/2020 10:25:00 AM EST completed eCW1 (Critical [facility] hospital) Medications No Information Insurance Providers Payer name Policy type / Coverage type Policy ID Covered democrat ID Covered democrat's relationship to sousa Policy Sousa Plan Information MEDICARE BLUE PPO 306 [id number] SP [id number] MEDICARE BLUE PPO 306 [id number] SP [id number] ANSI-Medicare Part B [id number] ANSI-Medicare Part B [id number] ANSMedicare Part B [id number] ANS-Medicare Part B [id number] ANSI-Medicare Part B [id number] ANS-Medicare Part B [id number] ANS-Medicare Part B [id number] ANSMedicare Part B [id number] ANSI-Medicare Part B [id number] ANSI-Medicare Part B [id number] ANSI-Medicare Part B [id number] ANSI-Medicare Part B [id number] ANSI-Medicare Part B [id number] ANSI-Medicare Part B [id number] ANSI-Medicare Part B [id number] ANSI-Medicare Part B [id number] [employer] FEDERAL EMPLOYEE PROGRAM [id number] SP [id number] BC BS [facility] FEDERAL B [id number] S [id number] ANSI-Medicare Part B [id number] [facility]-Medicare Part B [id number] [facility]-Medicare Part B [id number] [facility]-Medicare Part B [id number] [facility] FEDERAL EMPLOYEE PROGRAM [id number] SP [id number] [facility] FEDERAL EMPLOYEE PROGRAM [id number] SP [id number] MEDICARE COMPLETE [id number] MEDICARE COMPLETE [id number] SP [id number] MEDICARE [id number] SP [id number] A [facility] ADMINISTRATORS, [facility] [id number] MEDICARE C [id number] S [id number] A MEDICARE - [place] MCR [id number] S [id number] Problems, Conditions, and Diagnoses No Information Surgeries/Procedures Procedure Description Date Indications Data Source(s) Immunization: Flublok Quadrivalent (18 years & older) 0.5mL IM (Influenza) 09/07/2020 12:00:00 AM EST eCW1 ([facility]) Results No Information Social History Code Duration Value Status Description Data Source(s ) Smoking 09/07/2020 12:00:00 AM EST Former Smoker completed Former Smoker eCW1 ([facility]) Smoking 09/07/2020 12:00:00 AM EST Former Smoker completed Former Smoker eCW1 ([facility]) Smoking 09/07/2020 12:00:00 AM EST Former Smoker completed Former Smoker eCW1 ([facility]) Smoking 09/07/2020 12:00:00 AM EST Former Smoker completed Former Smoker eCW1 ([facility]) Smoking 09/07/2020 12:00:00 AM EST Former Smoker completed Former Smoker eCW1 ([facility]) Vital Signs ID Date Data Source UNK Name Value Range Interpretation Code Description Data Source(s) Respiratory rate 18 /min 18 /min eCW1 ([facility]) Body temperature 98.3 [degF] 98.3 [degF] eCW1 ( [facility]) Systolic blood pressure 128 mm[Hg] 128 mm[Hg] e CW1 ([facility]) Diastolic blood pressure mm[Hg] eCW1 ([facility]) Body weight 205 [lb_av] 205 [lb_av] W1 ([facility]) Body height 62.75 [in_i] 62.75 [in_i] W1 ([facility]) Body mass index (BMI) [Ratio] 36.60 kg/m2 36.60 kg/m2 W1 ([facility]) Heart rate 90 /min 90 /min eCW1 ([facility])
--- OUTSIDE RECORDS SUMMARY | 2021-07-21 18:29 | CCD ---
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 Phone Griselda Ventura Unavailable PROBLEMS Type Condition ICD9-CM Code CST57-EB Code Onset Dates Condition S tatus W/U Status Risk SNOMED Code Notes Problem Tobacco use disorder F17.200 Active confirmed 999149805 Problem Other chronic pain G89.29 Active confirmed 8 9845909 Problem Other chronic postprocedural pain G89.28 Active confirmed 259787261 Problem Acute bronchitis, unspecified organism J20.9 A ctive confirmed 56456661 Problem Lung consolidation J18.1 Active confirmed 9 7139010 Problem COPD exacerbation J44.1 Active confirmed 29 [id number] Problem Obesity (BMI 35.0-39.9 without comorbidity) E66.9 Active confirmed 134980674 Problem COPD with exacerbation J44.1 Active confirmed 372895977663471 Problem Chronic obstructive pulmonary disease, unspecified COPD ty pe J44.9 Active confirmed 30290340 Problem Leukocytosis, unspecified type D72.829 Active confi rmed 282414977 Problem 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 Active confirmed 621628588 Problem 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 Active confirmed 790253556 ALLERGIES Allergen (clinical drug ingredient) Drug/Non Drug Allergy do cumented on EMR Reaction Allergy Type Onset Date Status aspirin Aspirin([facility] Code:[address]-11) Nausea/Vomiting Drug Aller gy Active ENCOUNTERS from 1955 to 2021-05-30 Encounter Location Date Provider Diagnosis [facility] [address] [facility] [phone] [place] [address] May, Ventura Villalobos COPD exacerbation J44.1 and Chronic obstructive pulmonary disease, unspecified COPD type J44.9 IMMUNIZATIONS Vaccine Route Administration Date Status Influenza 18 yrs & older Flublok IM Intramuscular Sep 07, 2020 Administered Influenza 18 yrs & older Flublok IM Intramuscular Aug 12, 2019 Administered Influenza 18 yrs & older Flublok IM Intramuscular Sep 03, 2018 Administered Pneumococcal Adult 0.5mL Pneumovax 23 IM Intramuscular Sep 04 017 Administered TDAP 0.5mL (Boostrix) IM Intramuscular Aug 12, 2019 Administe red Pneumococcal 0.5mL Prevnar 13 IM Intramuscular Sep 03, 2018 A dministered Influenza 6mo & up Fluzone IM Intramuscular Sep 04, 2017 Admi nistered Influenza 6mo & up Fluzone Unknown May 24, 2014 Admin istered SOCIAL HISTORY Tobacco Use: Social History Observation Description Date Details (start date - stop date) Former Smoker Sex Assigned At : Social History Observation Description Sex Assigned At Unknown Education: Question Answer Notes Level of Education: High School Audit Question Answer Notes Total Score: 0 Interpretation: Alcohol Education Language: Question Answer Notes Languages spoken: Marshallese Hoahaoism: Question Answer Notes Hoahaoism 33 None Domestic Violence: Question Answer Notes Status: Sexual Hx: Question Answer Notes Had sex in the last 12 months (vaginal, oral, or anal)? No LMP: 1978 Have you ever had an STD? No Drug and Alcohol Question Answer Notes Total Score: 0 Interpretation: No problems reported Alcohol Screening: Question Answer Notes Did you have a drink containing alcohol in the past year? No Points 0 Interpretation Negative BMI Care Goal Follow-Up Question Answer Notes Above Normal BMI Follow-Up Giving encouragement to exercise Tobacco Use: Question Answer Notes Are you a: former smoker How long has it been since you last smoked? 1-5 years aug 2017 REASON FOR REFERRAL No Information VITAL SIGNS No information MEDICATIONS Medication SIG (Take, Route, Frequency, Duration) Notes Start Da te End Date Status ProAir HFA 108 (90 Base) MCG/ACT 2 puffs as needed Inh alation every 4 hrs for 90 days Please substitute generic albuterol or formulary preferred 2015 Active Ipratropium-Albuterol 0.5-2.5 (3) MG/3ML 3 ml as neede d Inhalation every 6 hrs for 30 days Dec, Active Breo Ellipta 100-25 MCG/INH 1 puff Inhalation Once a day for 30 days Aug, Active Nortriptyline HCl 25 mg 1 capsule Orally before bedtime for 90 Active COMPRESSION STOCKINGS 15-20 mmHg DIRECTED Dispens e 1 pair open toed knee high compression stockings 15-20mmHg. Wear as much as tolerated.Dx: M79.89Prog: Good.RUCHI: 1 year Dec, Active Gabapentin 600 MG 1 capsule before bedtime Orally before bedtime for 90 Active E-Z Spacer - as directed Aug, Active Triamcinolone Acetonide 0.025 % 1 application to affec hosea area of the elbows Externally As needed Active Ipratropium-Albuterol 0.5-2.5 (3) MG/3ML 3 ml Inhalati on every 6 hrs for 30 day(s) duplicate Aug, Not-Taking PROCEDURES No Information RESULTS No Results REASON FOR VISIT refill MEDICAL (GENERAL) HISTORY Type Description Date Medical History Tobacco use disorder, quit 08/2017 Medical History Hypoglycemia; has been evalu ated by Dr. Esparza (more than 10 years ago, treated with dietary changes). Medical History History of inhaler use for shortness of breath Medical History Spinal stenosis Medical History COPD Medical History Peripheral neuropathy Surgical History section, complicated by surgica l tool retention 1977 Surgical History Bowel obstruction, partial bowel and sto mach resection 1977 Surgical History Bladder reconstruction 1977 Surgical History Low back surgery, no hardware, unsure if fusion Surgical History Gallbladder removal 1977 Surgical History Hysterectomy 1977 Surgical History colonoscopy 2016 Hospitalization History No overnight hospitalizations since 1999 Hospitalization History [facility] - copd 09/2017 Goals Section No Information Health Concerns No Information MEDICAL EQUIPMENT No Information MENTAL STATUS No Information FUNCTIONAL STATUS No Information ASSESSMENTS Encounter Date Diagnosis Assessment Notes Treatment Notes Treatm ent Clinical Notes May, COPD exacerbation (ICD-10 - J44.1) May, Chronic obstructive pulmonar y disease, unspecified COPD type (ICD- 10 - J44.9) PLAN OF TREATMENT Medication Medication Name Sig Start Date Stop Date Gabapentin 600 MG 1 capsule before bedtime Orally before bedtime for 90 ProAir HFA 108 (90 Base) MCG/ACT 2 puffs as needed Inh alation every 4 hrs for 90 days Jul, Breo Ellipta 100-25 MCG/INH 1 puff Inhalation Once a day for 30 days Aug, Nortriptyline HCl 25 mg 1 capsule Orally before bedtime for 90 Insurance Providers Payer Name Payer Address Payer Phone Insured Name Patient Relati onship to Insured Coverage Start Date Coverage End Date MEDICARE BLUE O [address] [address] STACY MARTE I self
--- OUTSIDE RECORDS SUMMARY | 2021-07-21 18:29 | CCD ---
Author Author [facility] Organization [facility] Address Unknown Phone Unavailable Care Team Providers Care Valet Manager Name Role Phone Griselda Ventura Unavailable PROBLEMS Type Condition ICD9-CM Code PVX51-HQ Code Onset Dates Condition S tatus W/U Status Risk SNOMED Code Notes Problem Tobacco use disorder F17.200 Active confirmed 279338159 Problem Other chronic pain G89.29 Active confirmed 8 1833983 Problem Other chronic postprocedural pain G89.28 Active confirmed 160155659 Problem Acute bronchitis, unspecified organism J20.9 A ctive confirmed 41477186 Problem Lung consolidation J18.1 Active confirmed 9 0278301 Problem COPD exacerbation J44.1 Active confirmed 29 3493489138127 Problem Obesity (BMI 35.0-39.9 without comorbidity) E66.9 Active confirmed 377236049 Problem COPD with exacerbation J44.1 Active confirmed 870118061436215 Problem Chronic obstructive pulmonary disease, unspecified COPD ty pe J44.9 Active confirmed 82842504 Problem Leukocytosis, unspecified type D72.829 Active confi rmed 300264973 Problem 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.] Education Language: Question Answer Notes Languages spoken: Burundian Lutheran: Question Answer Notes Lutheran 33 None Domestic Violence: Question Answer Notes [...] Notes Start Da te End Date Status Gabapentin 600 MG 1 capsule before bedtime Orally before bedtime for 90 Active Breo Ellipta 100-25 MCG/INH 1 puff Inhalation Once a day for 30 days Aug, Active COMPRESSION STOCKINGS 15-20 mmHg DIRECTED Dispens e 1 pair open toed knee high compression stockings 15-20mmHg. Wear as much as tolerated.Dx: M79.89Prog: Good.RUCHI: 1 year Dec, Active Ipratropium-Albuterol 0.5-2.5 (3) MG/3ML 3 ml Inhalati on every 6 hrs for 30 day(s) duplicate 18 Aug, 2017 Not-Taking Ipratropium-Albuterol 0.5-2.5 (3) MG/3ML 3 ml as neede d Inhalation every 6 hrs for 30 days Dec, Active Triamcinolone Acetonide 0.025 % 1 application to affec hosea area of the elbows Externally As needed Active E-Z Spacer - as directed Aug, Active Nortriptyline HCl 25 mg 1 capsule Orally before bedtime for 90 Active ProAir HFA 108 (90 Base) MCG/ACT 2 puffs as needed Inh alation every 4 hrs for 90 days Please substitute generic albuterol or formulary preferred 2015 Active PROCEDURES No Information RESULTS No Results REASON FOR VISIT Inhalers refill MEDICAL (GENERAL) HISTORY Type Description Date [...] Surgical History Hysterectomy 1977 Surgical History colonoscopy 2015 Hospitalization History No overnight hospitalizations since 1999 Hospitalization History [facility] - copd 09/2017 Goals Section No [...] Medication Name Sig Start Date Stop Date Nortriptyline HCl 25 mg 1 capsule Orally before bedtime for 90 Gabapentin 600 MG 1 capsule before bedtime Orally before bedtime for 90 Breo Ellipta 100-25 MCG/INH 1 puff Inhalation Once a day for 30 days Aug, ProAir HFA 108 (90 Base) MCG/ACT 2 puffs as needed Inh alation every 4 hrs for 90 days Jul, Insurance Providers Payer Name Payer Address Payer Phone Insured Name Patient Relati onship to Insured Coverage Start Date Coverage End Date MEDICARE BLUE O [address] [id number] STACY MARTE I self
--- OUTSIDE RECORDS SUMMARY | 2021-07-21 19:13 | CCD ---
Author Author [facility] Organization [facility] Address Unknown Phone Unavailable Support Name Relationship Address Phone [facility] [place] [address] Unavailable CABRERA SALAS Next Of Kin [address] [place] [phone] Cabrera Silva ECON [address] [address] Unavailable Cabrera salas ECON [address] [facility] [address] [place] [phone] Cabrera Salas Unknown Re-disclosure Warning The records [...] is protected by Article 27-F of the [facility] Public Health law. If you continue you may have access to information: Regarding HIV / AIDS; Provided by facilities licensed or operated by the [facility] Office of Mental Health; or Provided by the [facility] Office for People With Developmental Disabilities. If such information is present, then the following [facility] mandated warning applies: This information has been [...] law may result in a fine or long-term sentence or both. A general authorization for the release of medical or other information is NOT sufficient authorization for further disc losure. Encounters Encounter Providers Location Date Indications Data Source(s ) [place] [address] [facility] [address] 05/29/2021 12:00:00 AM EDT eCW1 ([facility]) [place] [address] [facility] [address] 05/21/2021 12:00:00 AM EDT eCW1 ([facility]) [place] [address] [facility] [address] 03/14/2021 12:00:00 AM EDT eCW1 ([facility]) [place] [address] [facility] [address] 10/31/2020 12:00:00 AM EST eCW1 ([facility]) [place] [address] [facility] [address] 09/07/2020 12:00:00 AM EST eCW1 ([facility]) Immunizations Vaccine Date Status Description Data Source(s) COVID-19 VACCINE Moderna 01/19/2021 12:00:00 AM EDT completed [facility] Vaccine Series Complete: YESThis Data wa s Submitted to [facility]. COVID-19 VACCINE Moderna 12/22/2020 12:00:00 AM EDT completed [facility] Vaccine Series Complete: NOThis Data was Submitted to [facility] [employer]. influenza, recombinant, quadrIvalent,injectable, prese rvative free 09/07/2020 10:25:00 AM EST completed eCW1 ([facility]) influenza, recombinant, quadrIvalent,injectable, prese rvative free 09/07/2020 10:25:00 AM EST completed eCW1 ([facility]) influenza, recombinant, quadrIvalent,injectable, prese rvative free 09/07/2020 10:25:00 AM EST completed eCW1 ([facility]) influenza, recombinant, quadrIvalent,injectable, prese rvative free 09/07/2020 10:25:00 AM EST completed eCW1 ([facility]) influenza, recombinant, quadrIvalent,injectable, prese rvative free 09/07/2020 10:25:00 AM EST completed eCW1 ([facility]) Medications No Information Insurance Providers Payer name Policy type / Coverage type Policy ID Covered alliance party ID Covered alliance party's relationship to sousa Policy Sousa Plan Information MEDICARE BLUE PPO 306 [id number] SP [id number] MEDICARE BLUE PPO 306 [id number] SP [id number] ANSI-Medicare Part B [id number] ANSI-Medicare Part B [id number] ANSMedicare Part B [id number] ANS-Medicare Part B [id number] ANSI-Medicare Part B [id number] ANS-Medicare Part B [id number] ANS-Medicare Part B [id number] ANSMedicare Part B [id number] ANSI-Medicare Part B [id number] ANSI-Medicare Part B [id number] ANSI-Medicare Part B [id number] ANSI-Medicare Part B [id number] ANSI-Medicare Part B [id number] ANSI-Medicare Part B [id number] ANSI-Medicare Part B [id number] ANSI-Medicare Part B [id number] [employer] FEDERAL EMPLOYEE PROGRAM [id number] SP [id number] BC BS [facility] FEDERAL B [id number] S [id number] ANSI-Medicare Part B [id number] [facility]-Medicare Part B [id number] [facility]-Medicare Part B [id number] [facility]-Medicare Part B [id number] [facility] FEDERAL EMPLOYEE PROGRAM [id number] SP [id number] [facility] FEDERAL EMPLOYEE PROGRAM [id number] SP [id number] MEDICARE COMPLETE [id number] MEDICARE COMPLETE [id number] SP [id number] MEDICARE [id number] SP [id number] A [facility], [facility] [id number] MEDICARE C [id number] S [id number] A MEDICARE - [place] MCR [id number] S [id number] Problems, Conditions, and Diagnoses No Information Surgeries/Procedures Procedure Description Date Indications Data Source(s) Immunization: Flublok Quadrivalent (18 years & older) 0.5mL IM (Influenza) 09/07/2020 12:00:00 AM EST eCW1 ([facility]) Results No Information Social History Code Duration Value Status Description Data Source(s ) Smoking 09/07/2020 12:00:00 AM EST Former Smoker completed Former Smoker eCW1 ([facility]) Smoking 09/07/2020 12:00:00 AM EST Former Smoker completed Former Smoker eCW1 ([facility]) Smoking 09/07/2020 12:00:00 AM EST Former Smoker completed Former Smoker eCW1 ([facility]) Smoking 09/07/2020 12:00:00 AM EST Former Smoker completed Former Smoker eCW1 ([facility]) Smoking 09/07/2020 12:00:00 AM EST Former Smoker completed Former Smoker eCW1 ([facility]) Vital Signs ID Date Data Source UNK Name Value Range Interpretation Code Description Data Source(s) Respiratory rate 18 /min 18 /min eCW1 ([facility]) Body temperature 98.3 [degF] 98.3 [degF] eCW1 ( [facility]) Systolic blood pressure 128 mm[Hg] 128 mm[Hg] e CW1 ([facility]) Diastolic blood pressure mm[Hg] eCW1 ([facility]) Body weight 205 [lb_av] 205 [lb_av] W1 ([facility]) Body height 62.75 [in_i] 62.75 [in_i] W1 ([facility]) Body mass index (BMI) [Ratio] 36.60 kg/m2 36.60 kg/m2 W1 ([facility]) Heart rate 90 /min 90 /min eCW1 ([facility])
[2021-07-21] MEDS ORDERED: BENZOCAINE 20% GEL 9GM TUBE (ANBESOL MAX STRENGTH) TOP ONE (19:25)
[2021-07-21] MEDS ORDERED: NORCO, ANEXSIA 5/325MG TABLET (HYDROcodone/ACETAMINOPHEN) PO ONE (19:25)
[2021-07-21] MEDS ORDERED: ONDANSETRON 4 MG ORAL DISINTEGRATING TAB PO ONE (19:25)
[2021-07-21] MEDS ORDERED: AUGM875T28 PO (19:29)
[2021-07-21] MEDS ORDERED: AUGMENTIN 875 MG TAB PO ONE (19:30)
== END 2021-07-21 19:51 | disposition home or self-care (01) ==
LOC: M ED 18:24
DX: K02.9 Dental caries, unspecified (principal); K08.89 Other specified disorders of teeth and supporting structures; R11.0 Nausea; G89.29 Other chronic pain; M54.50 Low back pain, unspecified; J44.9 Chronic obstructive pulmonary disease, unspecified; K57.32 Diverticulitis of large intestine without perforation or abscess without bleeding; Z88.6 Allergy status to analgesic agent; Z79.899 Other long term (current) drug therapy
CPT/HCPCS: 99283; Q0162

== ENCOUNTER 2021-12-16 16:00 | Emergency (ER) | payer MEDICARE ==
[~2021-12-16] VITALS: Ht 160 cm; Wt 89.1 kg
[~2021-12-16 16:00] MED LIST changes: +AUGM875T28 PO
[2021-12-16 16:01] VITALS: BP 183/88
[2021-12-16] MEDS ORDERED: NAPROXEN 250 MG TAB PO ONE (17:25)
[2021-12-16] MEDS ORDERED: ACETAMINOPHEN TAB 650MG DOSE (2X325MG) PO ONE (17:25)
== END 2021-12-16 17:59 | disposition home or self-care (01) ==
LOC: M ED 16:00
DX: S86.912A Strain of unspecified muscle(s) and tendon(s) at lower leg level, left leg, initial encounter (principal); W01.0XXA Fall on same level from slipping, tripping and stumbling without subsequent striking against object, initial encounter; J44.9 Chronic obstructive pulmonary disease, unspecified; Z88.6 Allergy status to analgesic agent; Y92.9 Unspecified place or not applicable; Y93.9 Activity, unspecified; Y99.9 Unspecified external cause status; Z79.899 Other long term (current) drug therapy

== ENCOUNTER 2022-10-12 10:54 | Emergency (ER) | payer MEDICARE ==
[~2022-10-12] VITALS: Ht 157.5 cm; Wt 77.3 kg
[~2022-10-12 10:54] MED LIST changes: -DOXY-350 PO; +DOXY-444 PO
[2022-10-12] MEDS ORDERED: ACET-683 PO (11:02)
[2022-10-12] MEDS ORDERED: GABA600T4 (11:02)
[2022-10-12] MEDS ORDERED: NORT25CA2 (11:02)
[2022-10-12] MEDS ORDERED: CYCL-707 PO (12:37)
[2022-10-12] MEDS ORDERED: IBUP80TA PO (12:37)
[2022-10-12] MEDS ORDERED: NEUR300C PO (12:37)
[2022-10-12 12:47] VITALS: BP 160/77
== END 2022-10-12 12:52 | disposition home or self-care (01) ==
LOC: M ED 10:54
DX: M54.50 Low back pain, unspecified (principal); M79.604 Pain in right leg; M79.605 Pain in left leg; E11.9 Type 2 diabetes mellitus without complications; J44.9 Chronic obstructive pulmonary disease, unspecified; Z88.6 Allergy status to analgesic agent; Z79.82 Long term (current) use of aspirin; Z79.51 Long term (current) use of inhaled steroids; Z79.891 Long term (current) use of opiate analgesic; Z79.899 Other long term (current) drug therapy

== ENCOUNTER 2023-01-06 08:27 | Inpatient (IN) | payer MEDICARE ==
[~2023-01-06] VITALS: Ht 160 cm; Wt 98.0 kg
[~2023-01-06 08:27] MED LIST changes: +ACET-683 PO; +CYCL-707 PO; +GABA600T4 PO; +IBUP80TA PO; +NEUR300C PO; +NORT25CA2 PO
[2023-01-06] MEDS ORDERED: ALBUTEROL SULFATE 2.5MG/0.5ML INH NEB SOLN INH ONE (08:50)
[2023-01-06] MEDS ORDERED: IPRATROPIUM 0.5MG/ALBUTEROL 2.5MG INH SOL UD 3ML (DUONEB) NEB ONE (08:50)
[2023-01-06 09:07] LABS: ABG BASE EXCESS 0.5 (-2.0-2.0); ABG HCO3 26.3 MEQ/L (22.0-26.0); ABG PARTIAL PRESSURE CO2 46.9 mmHg (35.0-45.0); ABG PARTIAL PRESSURE O2 94.7 mmHg (75.0-100.0); ABG STANDARD HCO3 24.9 MEQ/L (22.0-26.0); ABG TOTAL CO2 27.8 MEQ/L (23.0-31.0); ABG pH (ARTERIAL) 7.367 UNITS (7.350-7.450)
[2023-01-06 09:18] LABS: BASO # 0.1 10^3/uL (0.0-0.2); BASO % 0.8 % (0.0-1.0); EOS # 0.4 10^3/uL (0.0-0.5); EOS % 4.6 % (0.0-3.0); HEMATOCRIT 41.9 % (36.0-47.0); HEMOGLOBIN 13.3 g/dl (12.0-15.5); LYMPH # 2.1 10^3/uL (1.5-5.0); LYMPH % 26.7 % (24.0-44.0); MEAN CORPUSCULAR HEMOGLOBIN 27.9 pg (27.0-33.0); MEAN CORPUSCULAR HGB CONC 31.7 g/dl (32.0-36.5); MONO # 0.5 10^3/uL (0.0-0.8); MONO % 6.9 % (2.0-8.0); NEUTROPHILS # 4.8 10^3/uL (1.5-8.5); NEUTROPHILS % 60.2 % (36.0-66.0); PLATELET COUNT, AUTOMATED 308 10^3/uL (150-450); RED BLOOD COUNT 4.76 10^6/uL (4.00-5.40); WHITE BLOOD COUNT 7.9 10^3/uL (4.0-10.0)
[2023-01-06 09:44] LABS: CPK CREATINE PHOSPHOKINASE 50 U/L (34-145)
[2023-01-06 10:25] LABS: ALBUMIN 3.8 G/DL (3.2-5.2); ALKALINE PHOSPHATASE 126 U/L (46-116); ALT/SGPT 32 U/L (7.0-40); AST/SGOT 21 U/L (<34); BILIRUBIN,DIRECT 0.1 MG/DL (<0.4); BILIRUBIN,TOTAL 0.3 MG/DL (0.3-1.2); CK-MB VALUE MASS < 1.0 NG/ML (<3.6); THYROID STIMULATING HORMONE 0.778 uIU/ML (0.55-4.78); THYROXINE (T4) 10.2 UG/DL (4.5-10.9)
[2023-01-06] MEDS ORDERED: ISOVUE-370 76% 100ML VIAL As Ordered ONE ×2 (10:35→10:47)
[2023-01-06 11:58] LABS: CK-MB VALUE MASS < 1.0 NG/ML (<3.6)
[2023-01-06 12:02] LABS: CPK CREATINE PHOSPHOKINASE 59 U/L (34-145); MB/CK RELATIVE INDEX 1.69 (< OR =4)
[2023-01-06] MEDS ORDERED: MOM 30ML SUSPENSION UDC PO PRN (14:15)
[2023-01-06] MEDS ORDERED: ACETAMINOPHEN TAB 650MG DOSE (2X325MG) PO PRN (14:15)
[2023-01-06] MEDS ORDERED: methylPREDNISolone 125MG 2ML VIAL IV ONE (14:15)
[2023-01-06] MEDS ORDERED: VENTAER INH (14:52)
[2023-01-06] MEDS ORDERED: HOME MED LIST COMPLETE! XX SCH (14:55)
[2023-01-06] MEDS: COMBIVENT RESPIMAT 100-20MCG INHALER 4GM INH SCH ×2 (15:10→18:58)
[2023-01-06] MEDS ORDERED: ALBUTEROL 90 MCG/ACT 8GM HFA INHALER INH PRN (15:10)
[2023-01-06] MEDS ORDERED: LR 1,000 ML IV ONE ×2 (15:15→20:25)
[2023-01-06] MEDS: AZITHROMYCIN 250MG TABLET PO SCH (15:45)
[2023-01-06 16:05] VITALS: BP 162/88
[2023-01-06 18:21] LABS: TOTAL PROTEIN 6.7 G/DL (5.7-8.2)
[2023-01-06] MEDS: ADVAIR HFA 115/21MCG INHALER INH SCH (18:58)
[2023-01-06 20:45] VITALS: BP 140/86
[2023-01-06] MEDS: methylPREDNISolone 125MG 2ML VIAL IV SCH (22:33)
[2023-01-06] MEDS: NORTRIPTYLINE 25 MG CAP PO SCH (22:33)
[2023-01-06] MEDS: GABAPENTIN 300 MG CAP PO PRN (22:33)
[2023-01-06] MEDS: LR 1,000 ML IV SCH (22:53)
[2023-01-07] MEDS: COMBIVENT RESPIMAT 100-20MCG INHALER 4GM INH SCH ×4 (01:24→19:55)
[2023-01-07] MEDS: LR 1,000 ML IV SCH ×4 (05:17→20:57)
[2023-01-07 06:00] VITALS: BP 135/87
[2023-01-07 06:24] LABS: HEMATOCRIT 41.9 % (36.0-47.0); HEMOGLOBIN 13.4 g/dl (12.0-15.5); MEAN CORPUSCULAR HEMOGLOBIN 28.1 pg (27.0-33.0); MEAN CORPUSCULAR VOLUME 87.8 fl (80.0-96.0); PLATELET COUNT, AUTOMATED 394 10^3/uL (150-450); RED BLOOD COUNT 4.77 10^6/uL (4.00-5.40); WHITE BLOOD COUNT 14.3 10^3/uL (4.0-10.0)
[2023-01-07] MEDS: methylPREDNISolone 125MG 2ML VIAL IV SCH ×2 (06:44→17:35)
[2023-01-07 06:53] LABS: BLOOD UREA NITROGEN 13 MG/DL (9-23); CALCIUM LEVEL 9.5 MG/DL (8.3-10.6); CARBON DIOXIDE LEVEL 26 MMOL/L (20-31); CHLORIDE LEVEL 104 MMOL/L (98-107); CREATININE FOR GFR 0.54 MG/DL (0.55-1.30); GLOMERULAR FILTRATION RATE > 60.0 (>45); GLUCOSE, FASTING 155 MG/DL (74-106); POTASSIUM SERUM 4.6 MMOL/L (3.5-5.1); SODIUM LEVEL 140 MMOL/L (136-145)
[2023-01-07] MEDS: ADVAIR HFA 115/21MCG INHALER INH SCH ×2 (07:33→19:55)
[2023-01-07] MEDS: AZITHROMYCIN 250MG TABLET PO SCH (08:23)
[2023-01-07] MEDS: ENOXAPARIN 40MG/0.4ML SYRINGE (J1650 PER 10MG) SC SCH (08:24)
[2023-01-07] MEDS ORDERED: predniSONE 20 MG TAB PO SCH (09:00)
[2023-01-07] MEDS ORDERED: METHYLPREDNISOLONE 1000 MG IV SCH (09:00)
[2023-01-07 14:00] VITALS: BP 123/85
[2023-01-07 20:00] VITALS: BP 138/85
[2023-01-07] MEDS: NORTRIPTYLINE 25 MG CAP PO SCH (20:16)
[2023-01-07] MEDS: GABAPENTIN 300 MG CAP PO PRN (20:18)
[2023-01-08] MEDS: COMBIVENT RESPIMAT 100-20MCG INHALER 4GM INH SCH ×4 (02:10→19:22)
[2023-01-08] MEDS: LR 1,000 ML IV SCH ×2 (05:02→23:55)
[2023-01-08 05:31] VITALS: BP 137/77
[2023-01-08] MEDS: methylPREDNISolone 125MG 2ML VIAL IV SCH (05:34)
[2023-01-08 07:00] LABS: HEMATOCRIT 38.7 % (36.0-47.0); HEMOGLOBIN 12.3 g/dl (12.0-15.5); MEAN CORPUSCULAR HEMOGLOBIN 28.1 pg (27.0-33.0); MEAN CORPUSCULAR HGB CONC 31.8 g/dl (32.0-36.5); MEAN CORPUSCULAR VOLUME 88.6 fl (80.0-96.0); PLATELET COUNT, AUTOMATED 337 10^3/uL (150-450); RED BLOOD COUNT 4.37 10^6/uL (4.00-5.40); WHITE BLOOD COUNT 14.6 10^3/uL (4.0-10.0)
[2023-01-08] MEDS: ADVAIR HFA 115/21MCG INHALER INH SCH ×2 (07:20→19:22)
[2023-01-08 07:25] LABS: ALBUMIN 3.5 G/DL (3.2-5.2); ALKALINE PHOSPHATASE 106 U/L (46-116); ALT/SGPT 31 U/L (7.0-40); AST/SGOT 17 U/L (<34); BILIRUBIN,TOTAL 0.3 MG/DL (0.3-1.2); BLOOD UREA NITROGEN 15 MG/DL (9-23); CALCIUM LEVEL 8.9 MG/DL (8.3-10.6); CARBON DIOXIDE LEVEL 30 MMOL/L (20-31); CHLORIDE LEVEL 101 MMOL/L (98-107); CREATININE FOR GFR 0.55 MG/DL (0.55-1.30); GLOMERULAR FILTRATION RATE > 60.0 (>45); GLUCOSE, FASTING 128 MG/DL (74-106); POTASSIUM SERUM 4.4 MMOL/L (3.5-5.1); SODIUM LEVEL 141 MMOL/L (136-145)
[2023-01-08] MEDS: AZITHROMYCIN 250MG TABLET PO SCH (08:34)
[2023-01-08] MEDS: ENOXAPARIN 40MG/0.4ML SYRINGE (J1650 PER 10MG) SC SCH (08:34)
[2023-01-08 13:33] VITALS: O2SAT 92
[2023-01-08 14:00] VITALS: BP 134/86
[2023-01-08] MEDS ORDERED: PRED20TA PO (16:19)
[2023-01-08] MEDS: NORTRIPTYLINE 25 MG CAP PO SCH (20:24)
[2023-01-08] MEDS: GABAPENTIN 300 MG CAP PO PRN (20:24)
[2023-01-08 20:29] VITALS: BP 138/81
[2023-01-09] MEDS: COMBIVENT RESPIMAT 100-20MCG INHALER 4GM INH SCH ×2 (01:55→07:20)
[2023-01-09 04:52] VITALS: BP 118/61
[2023-01-09 06:05] LABS: HEMATOCRIT 37.2 % (36.0-47.0); HEMOGLOBIN 11.8 g/dl (12.0-15.5); MEAN CORPUSCULAR HEMOGLOBIN 28.2 pg (27.0-33.0); MEAN CORPUSCULAR HGB CONC 31.7 g/dl (32.0-36.5); MEAN CORPUSCULAR VOLUME 88.8 fl (80.0-96.0); PLATELET COUNT, AUTOMATED 294 10^3/uL (150-450); RED BLOOD COUNT 4.19 10^6/uL (4.00-5.40); WHITE BLOOD COUNT 9.4 10^3/uL (4.0-10.0)
[2023-01-09 06:35] LABS: ALBUMIN 3.2 G/DL (3.2-5.2); ALKALINE PHOSPHATASE 97 U/L (46-116); ALT/SGPT 28 U/L (7.0-40); AST/SGOT < 8 U/L (<34); BILIRUBIN,TOTAL 0.3 MG/DL (0.3-1.2); BLOOD UREA NITROGEN 19 MG/DL (9-23); CALCIUM LEVEL 8.4 MG/DL (8.3-10.6); CARBON DIOXIDE LEVEL 32 MMOL/L (20-31); CHLORIDE LEVEL 103 MMOL/L (98-107); CREATININE FOR GFR 0.65 MG/DL (0.55-1.30); GLOMERULAR FILTRATION RATE > 60.0 (>45); GLUCOSE, FASTING 87 MG/DL (74-106); POTASSIUM SERUM 3.9 MMOL/L (3.5-5.1); SODIUM LEVEL 142 MMOL/L (136-145); TOTAL PROTEIN 5.6 G/DL (5.7-8.2)
[2023-01-09] MEDS: ADVAIR HFA 115/21MCG INHALER INH SCH (07:21)
[2023-01-09] MEDS: LR 1,000 ML IV SCH (07:59)
[2023-01-09] MEDS: AZITHROMYCIN 250MG TABLET PO SCH (08:50)
[2023-01-09] MEDS: ENOXAPARIN 40MG/0.4ML SYRINGE (J1650 PER 10MG) SC SCH (08:51)
[2023-01-09] MEDS ORDERED: predniSONE 20 MG TAB PO SCH (09:00)
== END 2023-01-09 10:21 | disposition home or self-care (01) | DRG 189 ==
LOC: M ED 08:27 → M ED INP 14:11 → ENRESERV 15:16 → M MSPAV 15:59 → OBSVTOIN 01-07 08:19
PROVIDERS: ADMIT Student in an Organized Health Care Education/Training Program; ATTEND Internal Medicine
DX: J96.21 Acute and chronic respiratory failure with hypoxia (principal); J44.1 Chronic obstructive pulmonary disease with (acute) exacerbation; E87.20 Acidosis, unspecified; R91.8 Other nonspecific abnormal finding of lung field; Z87.891 Personal history of nicotine dependence; M48.00 Spinal stenosis, site unspecified; G62.9 Polyneuropathy, unspecified; Z90.49 Acquired absence of other specified parts of digestive tract; Z90.79 Acquired absence of other genital organ(s); K76.0 Fatty (change of) liver, not elsewhere classified; N28.1 Cyst of kidney, acquired; Z79.899 Other long term (current) drug therapy; Z88.6 Allergy status to analgesic agent; Z20.822 Contact with and (suspected) exposure to COVID-19

== ENCOUNTER → 2023-06-16 | Outpatient (CLI) | payer MEDICARE ==
[~2023-06-16] MED LIST changes: +VENTAER INH
== END ==
LOC: M RAD 14:41
PROVIDERS: ATTEND Internal Medicine Critical Care Medicine
DX: I51.7 Cardiomegaly (principal); J98.4 Other disorders of lung; R91.1 Solitary pulmonary nodule

== ENCOUNTER → 2023-08-07 | Outpatient (CLI) | payer MEDICARE ==
[2023-08-07 10:08] LABS: BLOOD UREA NITROGEN 15 MG/DL (9-23); CALCIUM LEVEL 9.1 MG/DL (8.3-10.6); CARBON DIOXIDE LEVEL 31 MMOL/L (20-31); CHLORIDE LEVEL 102 MMOL/L (98-107); CREATININE FOR GFR 0.65 MG/DL (0.55-1.30); GLOMERULAR FILTRATION RATE > 60.0 (>39); GLUCOSE, FASTING 113 MG/DL (74-106); POTASSIUM SERUM 4.5 MMOL/L (3.5-5.1); SODIUM LEVEL 140 MMOL/L (136-145)
== END ==
LOC: M LAB 09:08
PROVIDERS: ATTEND Internal Medicine Critical Care Medicine
DX: R06.00 Dyspnea, unspecified (principal)

== ENCOUNTER 2023-08-24 17:16 | Emergency (ER) | payer MEDICARE ==
[~2023-08-24] VITALS: Ht 160 cm; Wt 97.0 kg
[2023-08-24 17:19] VITALS: BP 194/95; O2SAT 99
[2023-08-24 17:20] VITALS: TEMP 99.6
[2023-08-24 18:00] LABS: VENOUS BASE EXCESS 0.6 (-2.0-2.0); VENOUS HCO3 26.1 MMOL/L (23.0-27.0); VENOUS O2 SATURATION 94.6 % (60.0-80.0); VENOUS PARTIAL PRESSURE CO2 45.1 mmHg (38.0-50.0); VENOUS PARTIAL PRESSURE O2 75.4 mmHg (30.0-50.0); VENOUS STANDARD HCO3 24.9 MMOL/L; VENOUS TOTAL CO2 27.5 MMOL/L (24.0-28.0)
[2023-08-24 18:09] LABS: BASO # 0.1 10^3/uL (0.0-0.2); BASO % 0.6 % (0.0-1.0); EOS # 0.3 10^3/uL (0.0-0.5); EOS % 3.9 % (0.0-3.0); HEMOGLOBIN 13.6 g/dl (12.0-15.5); LYMPH # 1.9 10^3/uL (1.5-5.0); LYMPH % 24.5 % (24.0-44.0); MEAN CORPUSCULAR HEMOGLOBIN 27.9 pg (27.0-33.0); MEAN CORPUSCULAR HGB CONC 32.4 g/dl (32.0-36.5); MEAN CORPUSCULAR VOLUME 86.2 fl (80.0-96.0); MONO # 0.7 10^3/uL (0.0-0.8); MONO % 8.5 % (2.0-8.0); NEUTROPHILS # 4.7 10^3/uL (1.5-8.5); NEUTROPHILS % 61.2 % (36.0-66.0); PLATELET COUNT, AUTOMATED 295 10^3/uL (150-450); RED BLOOD COUNT 4.87 10^6/uL (4.00-5.40); WHITE BLOOD COUNT 7.7 10^3/uL (4.0-10.0)
[2023-08-24 18:30] LABS: CK-MB VALUE MASS < 1.0 NG/ML (<3.6)
[2023-08-24 18:31] LABS: CPK CREATINE PHOSPHOKINASE 56 U/L (34-145); MB/CK RELATIVE INDEX 1.78 (< OR =4)
[2023-08-24 18:31] LABS: ALBUMIN 3.8 G/DL (3.2-5.2); ALKALINE PHOSPHATASE 131 U/L (46-116); ALT/SGPT 40 U/L (7.0-40); AST/SGOT 27 U/L (<34); BILIRUBIN,DIRECT 0.1 MG/DL (<0.4); BILIRUBIN,TOTAL 0.3 MG/DL (0.3-1.2); BLOOD UREA NITROGEN 12 MG/DL (9-23); CALCIUM LEVEL 8.6 MG/DL (8.3-10.6); CARBON DIOXIDE LEVEL 27 MMOL/L (20-31); CHLORIDE LEVEL 105 MMOL/L (98-107); CREATININE FOR GFR 0.52 MG/DL (0.55-1.30); GLOMERULAR FILTRATION RATE > 60.0 (>39); GLUCOSE, FASTING 106 MG/DL (74-106); POTASSIUM SERUM 4.3 MMOL/L (3.5-5.1); SODIUM LEVEL 141 MMOL/L (136-145)
[2023-08-24 18:33] LABS: THYROXINE (T4) 9.6 UG/DL (4.5-10.9)
[2023-08-24 18:34] LABS: THYROID STIMULATING HORMONE 0.861 uIU/ML (0.55-4.78)
[2023-08-24 20:09] LABS: CK-MB VALUE MASS < 1.0 NG/ML (<3.6)
[2023-08-24 20:12] LABS: CPK CREATINE PHOSPHOKINASE 58 U/L (34-145); MB/CK RELATIVE INDEX 1.72 (< OR =4)
[2023-08-24] MEDS ORDERED: PRED10TA2 PO (20:32)
== END 2023-08-24 21:17 | disposition home or self-care (01) ==
LOC: M ED 17:16
DX: J44.1 Chronic obstructive pulmonary disease with (acute) exacerbation (principal); I50.20 Unspecified systolic (congestive) heart failure; E11.9 Type 2 diabetes mellitus without complications; Z88.6 Allergy status to analgesic agent; Z79.51 Long term (current) use of inhaled steroids; Z79.52 Long term (current) use of systemic steroids; Z79.899 Other long term (current) drug therapy

== ENCOUNTER 2023-09-04 16:32 | Inpatient (IN) | payer MEDICARE ==
[~2023-09-04] VITALS: Ht 160 cm; Wt 99.7 kg
[2023-09-04 16:58] LABS: VENOUS BASE EXCESS -0.4 (-2.0-2.0); VENOUS O2 SATURATION 82.5 % (60.0-80.0); VENOUS PARTIAL PRESSURE CO2 55.7 mmHg (38.0-50.0); VENOUS PARTIAL PRESSURE O2 49.6 mmHg (30.0-50.0); VENOUS PH 7.304 UNITS (7.330-7.430); VENOUS STANDARD HCO3 23.8 MMOL/L; VENOUS TOTAL CO2 28.7 MMOL/L (24.0-28.0)
[2023-09-04] MEDS: IPRATROPIUM 0.5MG/ALBUTEROL 2.5MG INH SOL UD 3ML (DUONEB) NEB PRN ×3 (17:02→17:14)
[2023-09-04 17:11] LABS: BASO # 0.1 10^3/uL (0.0-0.2); BASO % 0.7 % (0.0-1.0); EOS # 0.5 10^3/uL (0.0-0.5); HEMATOCRIT 45.2 % (36.0-47.0); HEMOGLOBIN 13.8 g/dl (12.0-15.5); LYMPH # 2.7 10^3/uL (1.5-5.0); LYMPH % 22.8 % (24.0-44.0); MEAN CORPUSCULAR HEMOGLOBIN 27.4 pg (27.0-33.0); MEAN CORPUSCULAR HGB CONC 30.5 g/dl (32.0-36.5); MEAN CORPUSCULAR VOLUME 89.9 fl (80.0-96.0); MONO # 0.9 10^3/uL (0.0-0.8); MONO % 7.6 % (2.0-8.0); NEUTROPHILS # 7.6 10^3/uL (1.5-8.5); RED BLOOD COUNT 5.03 10^6/uL (4.00-5.40)
[2023-09-04 17:27] LABS: ALBUMIN 3.9 G/DL (3.2-5.2); ALKALINE PHOSPHATASE 128 U/L (46-116); ALT/SGPT 64 U/L (7.0-40); AST/SGOT 38 U/L (<34); BILIRUBIN,DIRECT 0.1 MG/DL (<0.4); BILIRUBIN,TOTAL 0.4 MG/DL (0.3-1.2); BLOOD UREA NITROGEN 15 MG/DL (9-23); CALCIUM LEVEL 9.3 MG/DL (8.3-10.6); CARBON DIOXIDE LEVEL 28 MMOL/L (20-31); CHLORIDE LEVEL 106 MMOL/L (98-107); CREATININE FOR GFR 0.54 MG/DL (0.55-1.30); GLOMERULAR FILTRATION RATE > 60.0 (>39); GLUCOSE, FASTING 116 MG/DL (74-106); POTASSIUM SERUM 4.4 MMOL/L (3.5-5.1); SODIUM LEVEL 144 MMOL/L (136-145); TOTAL PROTEIN 7.2 G/DL (5.7-8.2)
[2023-09-04 17:29] LABS: THYROID STIMULATING HORMONE 0.619 uIU/ML (0.55-4.78)
[2023-09-04 17:41] LABS: CK-MB VALUE MASS < 1.0 NG/ML (<3.6)
[2023-09-04] MEDS ORDERED: ISOVUE-370 76% 100ML VIAL As Ordered ONE (17:44)
[2023-09-04 17:54] LABS: CPK CREATINE PHOSPHOKINASE 52 U/L (34-145); MB/CK RELATIVE INDEX 1.92 (< OR =4)
[2023-09-04 18:31] LABS: MB/CK RELATIVE INDEX 2.27 (< OR =4)
[2023-09-04] MEDS ORDERED: FURO20TA2 PO (20:16)
[2023-09-04] MEDS ORDERED: INCR1INH INH (20:16)
[2023-09-04] MEDS ORDERED: HOME MED LIST COMPLETE! XX SCH (20:20)
[2023-09-04] MEDS ORDERED: LEVALBUTEROL 1.25MG 0.5ML CONCENTRATE NEB INH PRN (21:50)
[2023-09-04] MEDS ORDERED: GLUCOSE 4GM CHEW TABLET PO PRN (21:50)
[2023-09-04] MEDS ORDERED: ALBUTEROL 90 MCG/ACT 8GM HFA INHALER INH PRN (21:50)
[2023-09-04] MEDS ORDERED: GLUCAGON INJ 1MG VIAL SC PRN (21:50)
[2023-09-04] MEDS ORDERED: GABAPENTIN 300 MG CAP PO PRN (21:50)
[2023-09-04] MEDS ORDERED: DEXTROSE 50% 50ML SYRINGE IV PRN (21:50)
[2023-09-04] MEDS ORDERED: PILL CUTTER 1 EACH XX PRN (22:10)
[2023-09-04 22:55] VITALS: BP 174/102; TEMP 97.3; O2SAT 92
[2023-09-04] MEDS: IPRATROPIUM 0.5MG/ALBUTEROL 2.5MG INH SOL UD 3ML (DUONEB) NEB SCH (23:01)
[2023-09-04] MEDS: guaiFENesin ER TABLET 600 MG TAB PO SCH (23:22)
[2023-09-04] MEDS: NORTRIPTYLINE 25 MG CAP PO SCH (23:59)
[2023-09-05] MEDS: AZITHROMYCIN 250MG TABLET PO SCH ×2 (01:32→20:19)
[2023-09-05 02:00] VITALS: BP 152/84
[2023-09-05] MEDS ORDERED: amLODIPine 5 MG TAB PO ONE (02:00)
[2023-09-05 05:20] VITALS: BP 171/95; TEMP 97.9; O2SAT 93
[2023-09-05 05:27] VITALS: BP 164/98
[2023-09-05] MEDS ORDERED: dexAMETHasone 4 MG TAB PO SCH (06:00)
[2023-09-05 07:12] LABS: ALBUMIN 3.5 G/DL (3.2-5.2); ALKALINE PHOSPHATASE 118 U/L (46-116); ALT/SGPT 71 U/L (7.0-40); AST/SGOT 46 U/L (<34); BILIRUBIN,TOTAL 0.5 MG/DL (0.3-1.2); BLOOD UREA NITROGEN 17 MG/DL (9-23); CALCIUM LEVEL 9.1 MG/DL (8.3-10.6); CARBON DIOXIDE LEVEL 27 MMOL/L (20-31); CHLORIDE LEVEL 106 MMOL/L (98-107); CREATININE FOR GFR 0.52 MG/DL (0.55-1.30); GLOMERULAR FILTRATION RATE > 60.0 (>39); GLUCOSE, FASTING 152 MG/DL (74-106); POTASSIUM SERUM 4.7 MMOL/L (3.5-5.1); SODIUM LEVEL 143 MMOL/L (136-145); TOTAL PROTEIN 6.5 G/DL (5.7-8.2)
[2023-09-05 07:35] LABS: MAGNESIUM LEVEL 1.8 MG/DL (1.8-2.4)
[2023-09-05] MEDS: TIOTROPIUM INHALER/CAPSULE (SPIRIVA) INH SCH (07:39)
[2023-09-05] MEDS: IPRATROPIUM 0.5MG/ALBUTEROL 2.5MG INH SOL UD 3ML (DUONEB) NEB SCH ×3 (07:39→19:34)
[2023-09-05 07:48] LABS: BASO # 0.1 10^3/uL (0.0-0.2); BASO % 0.4 % (0.0-1.0); EOS # 0.1 10^3/uL (0.0-0.5); EOS % 0.4 % (0.0-3.0); HEMATOCRIT 40.5 % (36.0-47.0); HEMOGLOBIN 12.7 g/dl (12.0-15.5); LYMPH # 1.1 10^3/uL (1.5-5.0); MEAN CORPUSCULAR HGB CONC 31.4 g/dl (32.0-36.5); MEAN CORPUSCULAR VOLUME 89.4 fl (80.0-96.0); MONO # 0.6 10^3/uL (0.0-0.8); MONO % 4.3 % (2.0-8.0); NEUTROPHILS # 11.4 10^3/uL (1.5-8.5); NEUTROPHILS % 84.4 % (36.0-66.0); PLATELET COUNT, AUTOMATED 345 10^3/uL (150-450); RED BLOOD COUNT 4.53 10^6/uL (4.00-5.40); WHITE BLOOD COUNT 13.5 10^3/uL (4.0-10.0)
[2023-09-05] MEDS: FUROSEMIDE 40MG/4ML VIAL IV SCH (08:34)
[2023-09-05] MEDS: INSULIN LISPRO (NovoLOG) PER UNIT SC SCH ×3 (08:34→17:40)
[2023-09-05] MEDS: guaiFENesin ER TABLET 600 MG TAB PO SCH ×2 (08:35→20:19)
[2023-09-05] MEDS: PANTOPRAZOLE 40MG VIAL IV SCH (08:53)
[2023-09-05] MEDS ORDERED: FUROSEMIDE 20 MG TAB PO SCH (09:00)
[2023-09-05 10:48] LABS: HEMOGLOBIN A1c 5.8 % (4.0-6.0)
[2023-09-05 14:00] VITALS: BP 129/77; TEMP 97.7; O2SAT 93
[2023-09-05] MEDS: methylPREDNISolone 40MG 1ML VIAL IV SCH ×2 (15:49→23:09)
[2023-09-05] MEDS ORDERED: FUROSEMIDE 40MG/4ML VIAL IV ONE (16:00)
[2023-09-05 19:07] VITALS: O2SAT 90
[2023-09-05 20:00] VITALS: BP 140/71; TEMP 97.9; O2SAT 90
[2023-09-05] MEDS: NORTRIPTYLINE 25 MG CAP PO SCH (20:19)
[2023-09-05] MEDS: ENOXAPARIN 40MG/0.4ML SYRINGE (J1650 PER 10MG) SC SCH (20:20)
[2023-09-05] MEDS ORDERED: INSULIN LISPRO (NovoLOG) PER UNIT SC SCH (21:00)
[2023-09-06] MEDS: IPRATROPIUM 0.5MG/ALBUTEROL 2.5MG INH SOL UD 3ML (DUONEB) NEB SCH ×3 (01:15→12:31)
[2023-09-06 05:38] VITALS: BP 127/67
[2023-09-06 06:00] VITALS: BP 123/65; TEMP 97.7; O2SAT 89
[2023-09-06] MEDS ORDERED: amLODIPine 5 MG TAB PO SCH (06:00)
[2023-09-06 06:21] LABS: BASO % 0.2 % (0.0-1.0); EOS % 0.1 % (0.0-3.0); HEMATOCRIT 41.3 % (36.0-47.0); HEMOGLOBIN 13.3 g/dl (12.0-15.5); LYMPH # 1.2 10^3/uL (1.5-5.0); LYMPH % 7.3 % (24.0-44.0); MEAN CORPUSCULAR HEMOGLOBIN 28.5 pg (27.0-33.0); MEAN CORPUSCULAR HGB CONC 32.2 g/dl (32.0-36.5); MEAN CORPUSCULAR VOLUME 88.4 fl (80.0-96.0); MONO # 0.5 10^3/uL (0.0-0.8); MONO % 3.2 % (2.0-8.0); NEUTROPHILS % 86.6 % (36.0-66.0); PLATELET COUNT, AUTOMATED 361 10^3/uL (150-450); RED BLOOD COUNT 4.67 10^6/uL (4.00-5.40); WHITE BLOOD COUNT 16.2 10^3/uL (4.0-10.0)
[2023-09-06 07:06] LABS: ALBUMIN 3.6 G/DL (3.2-5.2); ALKALINE PHOSPHATASE 116 U/L (46-116); ALT/SGPT 58 U/L (7.0-40); AST/SGOT 20 U/L (<34); BILIRUBIN,TOTAL 0.4 MG/DL (0.3-1.2); BLOOD UREA NITROGEN 30 MG/DL (9-23); CALCIUM LEVEL 9.5 MG/DL (8.3-10.6); CARBON DIOXIDE LEVEL 27 MMOL/L (20-31); CHLORIDE LEVEL 101 MMOL/L (98-107); GLOMERULAR FILTRATION RATE > 60.0 (>39); GLUCOSE, FASTING 171 MG/DL (74-106); MAGNESIUM LEVEL 1.9 MG/DL (1.8-2.4); POTASSIUM SERUM 4.3 MMOL/L (3.5-5.1); SODIUM LEVEL 139 MMOL/L (136-145); TOTAL PROTEIN 6.7 G/DL (5.7-8.2)
[2023-09-06] MEDS: TIOTROPIUM INHALER/CAPSULE (SPIRIVA) INH SCH (07:49)
[2023-09-06] MEDS: methylPREDNISolone 40MG 1ML VIAL IV SCH (08:26)
[2023-09-06] MEDS: guaiFENesin ER TABLET 600 MG TAB PO SCH (08:27)
[2023-09-06] MEDS: INSULIN LISPRO (NovoLOG) PER UNIT SC SCH ×2 (08:28→12:23)
[2023-09-06] MEDS: PANTOPRAZOLE 40MG VIAL IV SCH (08:28)
[2023-09-06] MEDS: ENOXAPARIN 40MG/0.4ML SYRINGE (J1650 PER 10MG) SC SCH (08:28)
[2023-09-06 08:34] VITALS: O2SAT 90
[2023-09-06] MEDS: FUROSEMIDE 40MG/4ML VIAL IV SCH (10:57)
[2023-09-06 11:00] VITALS: BP 139/79
[2023-09-06 11:53] VITALS: O2SAT 88
[2023-09-06 14:00] VITALS: BP 135/78; TEMP 97.9; O2SAT 90
[2023-09-06] MEDS ORDERED: MUCI600T31 PO (15:05)
[2023-09-06] MEDS ORDERED: MEDR4PAK PO (15:05)
[2023-09-06] MEDS ORDERED: PANT40TA29 PO (15:05)
[2023-09-06] MEDS ORDERED: AZIT500T5 PO (15:05)
[2023-09-06] MEDS ORDERED: FURO20TA2 PO (15:05)
[2023-09-06] MEDS ORDERED: AMLO25TA PO (15:22)
== END 2023-09-06 16:01 | disposition home health service (06) | DRG 196 ==
LOC: EDBD 16:32 → M ED 16:32 → M ED INP 21:07 → M MSPAV 22:57
PROVIDERS: ADMIT Internal Medicine; ATTEND Internal Medicine
DX: J84.9 Interstitial pulmonary disease, unspecified (principal); I50.33 Acute on chronic diastolic (congestive) heart failure; J44.1 Chronic obstructive pulmonary disease with (acute) exacerbation; M48.00 Spinal stenosis, site unspecified; K76.0 Fatty (change of) liver, not elsewhere classified; J43.9 Emphysema, unspecified; R07.89 Other chest pain; G62.9 Polyneuropathy, unspecified; I27.81 Cor pulmonale (chronic); I11.0 Hypertensive heart disease with heart failure; R91.8 Other nonspecific abnormal finding of lung field; Z88.6 Allergy status to analgesic agent; Z79.899 Other long term (current) drug therapy; Z87.891 Personal history of nicotine dependence

== ENCOUNTER → 2023-10-09 | Outpatient (CLI) | payer MEDICARE ==
[~2023-10-09] MED LIST changes: +AMLO25TA PO; +AZIT500T5 PO; +FURO20TA2 PO; +INCR1INH INH; +MEDR4PAK PO; +MUCI600T31 PO; +PANT40TA29 PO
[2023-10-09 12:10] LABS: BLOOD UREA NITROGEN 14 MG/DL (9-23); CARBON DIOXIDE LEVEL 31 MMOL/L (20-31); CHLORIDE LEVEL 104 MMOL/L (98-107); CREATININE FOR GFR 0.66 MG/DL (0.55-1.30); GLOMERULAR FILTRATION RATE > 60.0 (>39); GLUCOSE, FASTING 112 MG/DL (74-106); POTASSIUM SERUM 4.2 MMOL/L (3.5-5.1); SODIUM LEVEL 141 MMOL/L (136-145)
== END ==
LOC: M LAB 11:16
PROVIDERS: ATTEND Internal Medicine Critical Care Medicine
DX: R06.00 Dyspnea, unspecified (principal)

== ENCOUNTER → 2023-12-05 | Outpatient (CLI) | payer MEDICARE ==
[2023-12-05 11:58] LABS: BASO % 0.4 % (0.0-1.0); EOS # 0.2 10^3/uL (0.0-0.5); EOS % 2.6 % (0.0-3.0); HEMATOCRIT 41.5 % (36.0-47.0); HEMOGLOBIN 13.2 g/dl (12.0-15.5); LYMPH # 1.7 10^3/uL (1.5-5.0); MEAN CORPUSCULAR HEMOGLOBIN 28.5 pg (27.0-33.0); MEAN CORPUSCULAR HGB CONC 31.8 g/dl (32.0-36.5); MEAN CORPUSCULAR VOLUME 89.6 fl (80.0-96.0); MONO # 0.5 10^3/uL (0.0-0.8); NEUTROPHILS # 4.5 10^3/uL (1.5-8.5); PLATELET COUNT, AUTOMATED 313 10^3/uL (150-450); RED BLOOD COUNT 4.63 10^6/uL (4.00-5.40)
[2023-12-05 12:36] LABS: FREE T4 1.04 NG/DL (0.89-1.76); THYROID STIMULATING HORMONE 0.907 uIU/ML (0.55-4.78)
[2023-12-05 12:37] LABS: ALBUMIN 3.8 G/DL (3.2-5.2); ALKALINE PHOSPHATASE 124 U/L (46-116); ALT/SGPT 36 U/L (7.0-40); AST/SGOT 23 U/L (<34); BILIRUBIN,TOTAL 0.4 MG/DL (0.3-1.2); BLOOD UREA NITROGEN 17 MG/DL (9-23); CALCIUM LEVEL 9.3 MG/DL (8.3-10.6); CARBON DIOXIDE LEVEL 31 MMOL/L (20-31); CHLORIDE LEVEL 105 MMOL/L (98-107); CHOLESTEROL LEVEL 164 MG/DL (<200); CHOLESTEROL RISK RATIO 2.26 (<5); GLOMERULAR FILTRATION RATE > 60.0 (>39); GLUCOSE, FASTING 93 MG/DL (74-106); HDL CHOLESTEROL 72.4 MG/DL (>40); LDL CHOLESTEROL 65.4 MG/DL (<100); NON-HDL-C 91.6 MG/DL; POTASSIUM SERUM 5.3 MMOL/L (3.5-5.1); SODIUM LEVEL 140 MMOL/L (136-145); TOTAL PROTEIN 6.8 G/DL (5.7-8.2); TRIGLYCERIDES LEVEL 131 MG/DL (<150)
[2023-12-05 12:45] LABS: HEMOGLOBIN A1c 5.9 % (4.0-6.0)
== END ==
LOC: M LAB 10:25
PROVIDERS: ATTEND Family Medicine
DX: E66.01 Morbid (severe) obesity due to excess calories (principal); E11.9 Type 2 diabetes mellitus without complications; J44.9 Chronic obstructive pulmonary disease, unspecified
CPT/HCPCS: 36415; 80053; 80061; 83036; 84439; 84443; 85025; G0399

== ENCOUNTER → 2023-12-05 | Outpatient (CLI) | payer MEDICARE | LOC: M SLEEP HO 10:20 → M LAB 10:20 | PROVIDERS: ATTEND Internal Medicine Cardiovascular Disease | DX: I50.810 Right heart failure, unspecified (principal) ==

== ENCOUNTER 2023-12-30 15:21 | Inpatient (IN) | payer MEDICARE ==
[~2023-12-30] VITALS: Ht 160 cm; Wt 102.4 kg
[2023-12-30] MEDS ORDERED: FURO20TA2 PO (15:37)
[2023-12-30] MEDS ORDERED: SPIR-10 PO (15:37)
[2023-12-30 15:51] LABS: VENOUS BASE EXCESS -0.8 (-2.0-2.0); VENOUS HCO3 25.2 MMOL/L (23.0-27.0); VENOUS O2 SATURATION 83.4 % (60.0-80.0); VENOUS PARTIAL PRESSURE CO2 46.6 mmHg (38.0-50.0); VENOUS PARTIAL PRESSURE O2 48.8 mmHg (30.0-50.0); VENOUS PH 7.351 UNITS (7.330-7.430); VENOUS STANDARD HCO3 23.5 MMOL/L; VENOUS TOTAL CO2 26.6 MMOL/L (24.0-28.0)
[2023-12-30 15:58] LABS: BASO # 0.1 10^3/uL (0.0-0.2); BASO % 0.5 % (0.0-1.0); EOS # 0.3 10^3/uL (0.0-0.5); EOS % 2.6 % (0.0-3.0); HEMATOCRIT 40.5 % (36.0-47.0); HEMOGLOBIN 12.8 g/dl (12.0-15.5); LYMPH # 2.1 10^3/uL (1.5-5.0); LYMPH % 21.9 % (24.0-44.0); MEAN CORPUSCULAR HEMOGLOBIN 28.4 pg (27.0-33.0); MEAN CORPUSCULAR HGB CONC 31.6 g/dl (32.0-36.5); MONO # 0.9 10^3/uL (0.0-0.8); MONO % 9.3 % (2.0-8.0); NEUTROPHILS # 6.2 10^3/uL (1.5-8.5); NEUTROPHILS % 64.9 % (36.0-66.0); PLATELET COUNT, AUTOMATED 312 10^3/uL (150-450); WHITE BLOOD COUNT 9.6 10^3/uL (4.0-10.0)
[2023-12-30 16:21] LABS: CK-MB VALUE MASS < 1.0 NG/ML (<3.6)
[2023-12-30 16:24] LABS: ALBUMIN 3.7 G/DL (3.2-5.2); ALKALINE PHOSPHATASE 107 U/L (46-116); ALT/SGPT 32 U/L (7.0-40); AST/SGOT 19 U/L (<34); BILIRUBIN,DIRECT < 0.1 MG/DL (<0.4); BILIRUBIN,TOTAL 0.2 MG/DL (0.3-1.2); BLOOD UREA NITROGEN 23 MG/DL (9-23); CALCIUM LEVEL 9.2 MG/DL (8.3-10.6); CARBON DIOXIDE LEVEL 27 MMOL/L (20-31); CHLORIDE LEVEL 112 MMOL/L (98-107); CREATININE FOR GFR 0.79 MG/DL (0.55-1.30); GLOMERULAR FILTRATION RATE > 60.0 (>39); GLUCOSE, FASTING 70 MG/DL (74-106); SODIUM LEVEL 139 MMOL/L (136-145); THYROXINE (T4) 8.8 UG/DL (4.5-10.9); TOTAL PROTEIN 6.6 G/DL (5.7-8.2)
[2023-12-30 16:25] LABS: THYROID STIMULATING HORMONE 0.673 uIU/ML (0.55-4.78)
[2023-12-30 16:44] LABS: CPK CREATINE PHOSPHOKINASE 63 U/L (34-145); MB/CK RELATIVE INDEX 1.58 (< OR =4)
[2023-12-30] MEDS ORDERED: ISOVUE-370 76% 100ML VIAL As Ordered ONE (17:42)
[2023-12-30] MEDS: FUROSEMIDE 40MG/4ML VIAL IV ONE (18:19)
[2023-12-30 18:27] LABS: CK-MB VALUE MASS < 1.0 NG/ML (<3.6); CPK CREATINE PHOSPHOKINASE 52 U/L (34-145); MB/CK RELATIVE INDEX 1.92 (< OR =4)
[2023-12-30] MEDS: IPRATROPIUM 0.5MG/ALBUTEROL 2.5MG INH SOL UD 3ML (DUONEB) NEB ONE ×2 (20:06→21:05)
[2023-12-30] MEDS: methylPREDNISolone 125MG 2ML VIAL IV ONE (20:11)
[2023-12-30] MEDS ORDERED: FLUT1BLS5 INH (22:23)
[2023-12-30] MEDS ORDERED: HOME MED LIST COMPLETE! XX SCH (22:25)
[2023-12-31] VITALS (7 sets, daily range): BP systolic 142–150; BP diastolic 74–86; TEMP 97.5–98.1; O2SAT 90–95
[2023-12-31] MEDS ORDERED: ALBUTEROL 90 MCG/ACT 8GM HFA INHALER INH PRN (00:05)
[2023-12-31] MEDS ORDERED: MOM 30ML SUSPENSION UDC PO PRN (00:05)
[2023-12-31] MEDS ORDERED: MAALOX 30 ML SUSP *UDC PO PRN (00:05)
[2023-12-31] MEDS ORDERED: ACETAMINOPHEN TAB 650MG DOSE (2X325MG) PO PRN (00:05)
[2023-12-31] MEDS ORDERED: ALBUTEROL SULFATE 2.5MG/0.5ML INH NEB SOLN NEB PRN (00:05)
[2023-12-31 01:34] LABS: INR 1.05; PROTHROMBIN TIME 13.4 SECONDS (12.5-14.5)
[2023-12-31] MEDS: cefTRIAXone SOD 1 GM in D5W MINI-BAG PLUS 50 ML IV SCH (01:47)
[2023-12-31] MEDS: DOXYCYCLINE HYCLATE 100MG TABLET PO SCH (01:47)
[2023-12-31 01:52] LABS: MAGNESIUM LEVEL 1.7 MG/DL (1.8-2.4)
[2023-12-31] MEDS: IPRATROPIUM 0.5MG/ALBUTEROL 2.5MG INH SOL UD 3ML (DUONEB) NEB SCH (01:56)
[2023-12-31] MEDS: methylPREDNISolone 125MG 2ML VIAL IV SCH (03:03)
[2023-12-31] MEDS: MAGNESIUM OXIDE 400MG TAB (MAG-OX) PO ONE (03:03)
[2023-12-31 03:22] LABS: PROCALCITONIN 0.08 ng/ml
[2023-12-31] MEDS ORDERED: ADVAIR HFA 115/21MCG INHALER INH SCH (08:00)
[2023-12-31] MEDS: TIOTROPIUM INHALER/CAPSULE (SPIRIVA) INH SCH (08:06)
[2023-12-31] MEDS: BUDESONIDE 0.5 MG/2 ML INHALATION SUSPENSION NEB SCH (08:06)
[2023-12-31] MEDS ORDERED: INCRUSE ELLIPTA INH SCH (09:00)
[2023-12-31] MEDS: ENOXAPARIN 40MG/0.4ML SYRINGE (J1650 PER 10MG) SC SCH (09:19)
[2023-12-31] MEDS: DOCUSATE SODIUM 100MG CAPSULE PO SCH (09:19)
[2023-12-31] MEDS: methylPREDNISolone 40MG 1ML VIAL IV SCH ×2 (09:20→21:06)
[2023-12-31] MEDS: PANTOPRAZOLE 40MG TAB (PROTONIX) PO SCH (09:21)
[2023-12-31] MEDS: FUROSEMIDE 20 MG TAB PO SCH (09:21)
[2023-12-31] MEDS ORDERED: GLUCOSE 4GM CHEW TABLET PO PRN (11:20)
[2023-12-31] MEDS ORDERED: GLUCAGON INJ 1MG VIAL SC PRN (11:20)
[2023-12-31] MEDS ORDERED: DEXTROSE 50% 50ML SYRINGE IV PRN (11:20)
[2023-12-31] MEDS ORDERED: ONDANSETRON 4MG 2ML VIAL IV PRN (11:45)
[2023-12-31] MEDS: FLUTICASONE PROP 0.05% NASAL SPRAY 16 GM (FLONASE) NARES SCH (13:06)
[2023-12-31] MEDS: guaiFENesin ER TABLET 600 MG TAB PO SCH (13:06)
[2023-12-31] MEDS: INSULIN LISPRO (NovoLOG) PER UNIT SC SCH (13:50)
[2023-12-31] MEDS ORDERED: INSULIN LISPRO (NovoLOG) PER UNIT SC SCH (21:00)
[2023-12-31] MEDS: SPIRONOLACTONE 12.5MG PER 1/2 TABLET PO SCH (21:05)
[2023-12-31] MEDS: GABAPENTIN 300 MG CAP PO SCH (21:06)
[2024-01-01 03:34] VITALS: O2SAT 88
[2024-01-01 06:00] VITALS: BP 120/60; TEMP 97.9; O2SAT 93
[2024-01-01 06:17] LABS: HEMATOCRIT 41.8 % (36.0-47.0); HEMOGLOBIN 13.2 g/dl (12.0-15.5); MEAN CORPUSCULAR HEMOGLOBIN 28.5 pg (27.0-33.0); MEAN CORPUSCULAR HGB CONC 31.6 g/dl (32.0-36.5); MEAN CORPUSCULAR VOLUME 90.3 fl (80.0-96.0); PLATELET COUNT, AUTOMATED 418 10^3/uL (150-450); RED BLOOD COUNT 4.63 10^6/uL (4.00-5.40); WHITE BLOOD COUNT 17.4 10^3/uL (4.0-10.0)
[2024-01-01 06:42] LABS: PROCALCITONIN 0.07 ng/ml
[2024-01-01 06:44] LABS: ALKALINE PHOSPHATASE 106 U/L (46-116); ALT/SGPT 33 U/L (7.0-40); AST/SGOT 14 U/L (<34); BILIRUBIN,TOTAL 0.3 MG/DL (0.3-1.2); BLOOD UREA NITROGEN 32 MG/DL (9-23); CALCIUM LEVEL 9.8 MG/DL (8.3-10.6); CARBON DIOXIDE LEVEL 27 MMOL/L (20-31); CHLORIDE LEVEL 105 MMOL/L (98-107); GLOMERULAR FILTRATION RATE > 60.0 (>39); GLUCOSE, FASTING 171 MG/DL (74-106); POTASSIUM SERUM 4.9 MMOL/L (3.5-5.1); SODIUM LEVEL 142 MMOL/L (136-145)
[2024-01-01] MEDS: predniSONE 10MG TAB PO SCH (08:01)
[2024-01-01 14:00] VITALS: TEMP 97.7; O2SAT 92
[2024-01-01] MEDS ORDERED: DOXY100T PO (14:33)
[2024-01-01] MEDS ORDERED: FLUTISP NARES (14:33)
[2024-01-01] MEDS ORDERED: CEFD1CAP9 PO (14:33)
[2024-01-01] MEDS ORDERED: MUCI600T31 PO (14:33)
[2024-01-06 15:21] LABS: BODY FLUID CULTURE Not indicated. (.); LEGIONELLA ANTIGEN URINE Negative (Negative); ORGANISM ID Not indicated. (.); SPECIMEN SOURCE Urine (.); URINE STREP PNEUMONIAE ANTIGEN Negative (Negative)
== END 2024-01-01 15:05 | disposition home health service (06) | DRG 191 ==
LOC: M ED 15:21 → EDBD 15:21 → INTOOBSV 23:55 → M ED INP 23:55 → ENRESERV 12-31 01:59 → M MSPAV 12-31 03:09 → OBSVTOIN 01-01 08:48
PROVIDERS: ADMIT Internal Medicine; ATTEND Student in an Organized Health Care Education/Training Program
DX: J44.1 Chronic obstructive pulmonary disease with (acute) exacerbation (principal); Z68.41 Body mass index [BMI] 40.0-44.9, adult; M48.00 Spinal stenosis, site unspecified; N28.1 Cyst of kidney, acquired; E83.42 Hypomagnesemia; R73.9 Hyperglycemia, unspecified; J32.9 Chronic sinusitis, unspecified; K76.0 Fatty (change of) liver, not elsewhere classified; B96.89 Other specified bacterial agents as the cause of diseases classified elsewhere; E66.01 Morbid (severe) obesity due to excess calories; Z79.899 Other long term (current) drug therapy; R91.1 Solitary pulmonary nodule; G62.9 Polyneuropathy, unspecified; Z87.891 Personal history of nicotine dependence; R00.2 Palpitations

== ENCOUNTER 2024-01-26 07:55 | Observation (INO) | payer MEDICARE ==
[~2024-01-26] VITALS: Ht 160 cm; Wt 105.2 kg
[~2024-01-26 07:55] MED LIST changes: +CEFD1CAP9 PO; +DOXY100T PO; +FLUT1BLS5 INH; +FLUTISP NARES; +SPIR-10 PO
[2024-01-26] MEDS: ADVAIR HFA 115/21MCG INHALER INH SCH (08:00)
[2024-01-26] MEDS: IPRATROPIUM 0.5MG/ALBUTEROL 2.5MG INH SOL UD 3ML (DUONEB) NEB ONE (08:17)
[2024-01-26 08:40] LABS: BASO % 0.5 % (0.0-1.0); EOS # 0.3 10^3/uL (0.0-0.5); EOS % 3.3 % (0.0-3.0); HEMATOCRIT 42.2 % (36.0-47.0); HEMOGLOBIN 13.3 g/dl (12.0-15.5); LYMPH # 1.6 10^3/uL (1.5-5.0); LYMPH % 21.1 % (24.0-44.0); MEAN CORPUSCULAR HEMOGLOBIN 28.2 pg (27.0-33.0); MEAN CORPUSCULAR HGB CONC 31.5 g/dl (32.0-36.5); MEAN CORPUSCULAR VOLUME 89.4 fl (80.0-96.0); MONO # 0.5 10^3/uL (0.0-0.8); MONO % 6.7 % (2.0-8.0); NEUTROPHILS # 5.1 10^3/uL (1.5-8.5); NEUTROPHILS % 67.4 % (36.0-66.0); PLATELET COUNT, AUTOMATED 298 10^3/uL (150-450); RED BLOOD COUNT 4.72 10^6/uL (4.00-5.40); WHITE BLOOD COUNT 7.6 10^3/uL (4.0-10.0)
[2024-01-26 09:05] LABS: ALBUMIN 3.6 G/DL (3.2-5.2); ALKALINE PHOSPHATASE 131 U/L (46-116); ALT/SGPT 37 U/L (7.0-40); AST/SGOT 21 U/L (<34); BILIRUBIN,DIRECT < 0.1 MG/DL (<0.4); BILIRUBIN,TOTAL 0.3 MG/DL (0.3-1.2); BLOOD UREA NITROGEN 17 MG/DL (9-23); CALCIUM LEVEL 8.9 MG/DL (8.3-10.6); CARBON DIOXIDE LEVEL 28 MMOL/L (20-31); CHLORIDE LEVEL 105 MMOL/L (98-107); CK-MB VALUE MASS < 1.0 NG/ML (<3.6); GLOMERULAR FILTRATION RATE > 60.0 (>39); GLUCOSE, FASTING 128 MG/DL (74-106); POTASSIUM SERUM 4.6 MMOL/L (3.5-5.1); SODIUM LEVEL 141 MMOL/L (136-145); TOTAL PROTEIN 6.8 G/DL (5.7-8.2)
[2024-01-26 09:10] LABS: CPK CREATINE PHOSPHOKINASE 41 U/L (34-145); MB/CK RELATIVE INDEX 2.43 (< OR =4)
[2024-01-26 09:29] LABS: ABG HCO3 25.2 MMOL/L (22.0-26.0); ABG O2 SATURATION 92.4 % (95.0-99.0); ABG STANDARD HCO3 24.4 MMOL/L. (22.0-26.0); ABG TOTAL CO2 26.5 MMOL/L (23.0-31.0); ABG pH (ARTERIAL) 7.386 UNITS (7.350-7.450)
[2024-01-26] MEDS: dexAMETHasone 20MG/5ML VIAL IV ONE (09:37)
[2024-01-26 10:05] LABS: CK-MB VALUE MASS < 1.0 NG/ML (<3.6)
[2024-01-26 10:08] LABS: CPK CREATINE PHOSPHOKINASE 44 U/L (34-145); MB/CK RELATIVE INDEX 2.27 (< OR =4)
[2024-01-26] MEDS ORDERED: HOME MED LIST COMPLETE! XX SCH (11:30)
[2024-01-26] MEDS ORDERED: FLUT15.820 NARES (11:30)
[2024-01-26] MEDS ORDERED: MOM 30ML SUSPENSION UDC PO PRN (11:35)
[2024-01-26] MEDS ORDERED: ACETAMINOPHEN TAB 650MG DOSE (2X325MG) PO PRN (11:35)
[2024-01-26] MEDS: COMBIVENT RESPIMAT 100-20MCG INHALER 4GM INH SCH (13:21)
[2024-01-26] MEDS: DOCUSATE SODIUM 100MG CAPSULE PO SCH (13:22)
[2024-01-26] MEDS: AZITHROMYCIN 250MG TABLET PO SCH (13:22)
[2024-01-26] MEDS: NITROGLYCERIN 0.2 MG/HR PATCH TD SCH (14:09)
[2024-01-26 14:44] VITALS: BP 144/86; TEMP 98.1; O2SAT 90
[2024-01-26 15:18] LABS: PROCALCITONIN 0.14 ng/ml
[2024-01-26 16:42] VITALS: BP 147/86
[2024-01-26 16:44] VITALS: BP 143/84
[2024-01-26 16:48] VITALS: BP 145/84
[2024-01-26] MEDS: RIVAROXABAN 10MG TAB (XARELTO) PO SCH (17:28)
[2024-01-26] MEDS: IPRATROPIUM 0.5MG/ALBUTEROL 2.5MG INH SOL UD 3ML (DUONEB) NEB SCH (17:39)
[2024-01-26 19:56] VITALS: BP 129/84; TEMP 97.3; O2SAT 88
[2024-01-26] MEDS: [UNRECOGNIZED DRUG - REMARK] XX SCH (21:55)
[2024-01-27] VITALS (22 sets, daily range): BP systolic 111–130; BP diastolic 71–93; TEMP 97.5–97.9; O2SAT 84–96
[2024-01-27] MEDS ORDERED: LEVALBUTEROL 1.25MG 0.5ML CONCENTRATE NEB INH PRN (01:40)
[2024-01-27] MEDS: ONDANSETRON 4MG 2ML VIAL IV PRN (06:14)
[2024-01-27 06:35] LABS: HEMATOCRIT 40.3 % (36.0-47.0); HEMOGLOBIN 12.8 g/dl (12.0-15.5); MEAN CORPUSCULAR HGB CONC 31.8 g/dl (32.0-36.5); MEAN CORPUSCULAR VOLUME 88.2 fl (80.0-96.0); PLATELET COUNT, AUTOMATED 349 10^3/uL (150-450); RED BLOOD COUNT 4.57 10^6/uL (4.00-5.40); WHITE BLOOD COUNT 11.2 10^3/uL (4.0-10.0)
[2024-01-27 07:08] LABS: ALBUMIN 3.9 G/DL (3.2-5.2); ALKALINE PHOSPHATASE 124 U/L (46-116); ALT/SGPT 33 U/L (7.0-40); AST/SGOT 15 U/L (<34); BILIRUBIN,TOTAL 0.3 MG/DL (0.3-1.2); BLOOD UREA NITROGEN 21 MG/DL (9-23); CALCIUM LEVEL 9.9 MG/DL (8.3-10.6); CARBON DIOXIDE LEVEL 24 MMOL/L (20-31); CHLORIDE LEVEL 103 MMOL/L (98-107); CREATININE FOR GFR 0.62 MG/DL (0.55-1.30); GLOMERULAR FILTRATION RATE > 60.0 (>39); GLUCOSE, FASTING 151 MG/DL (74-106); POTASSIUM SERUM 4.5 MMOL/L (3.5-5.1); SODIUM LEVEL 139 MMOL/L (136-145); TOTAL PROTEIN 6.8 G/DL (5.7-8.2)
[2024-01-27] MEDS: TIOTROPIUM INHALER/CAPSULE (SPIRIVA) INH SCH (07:19)
[2024-01-27] MEDS ORDERED: predniSONE 20 MG TAB PO SCH (09:00)
[2024-01-27] MEDS: guaiFENesin SYRUP 200MG 10ML UDC PO PRN (10:08)
[2024-01-27] MEDS: methylPREDNISolone 40MG 1ML VIAL IV SCH (10:08)
[2024-01-27] MEDS: RAMELTEON 8 MG TAB (ROZEREM) PO SCH (21:42)
[2024-01-28 01:32] VITALS: O2SAT 94
[2024-01-28 05:22] VITALS: BP 123/62; TEMP 97.5; O2SAT 91
[2024-01-28 08:20] VITALS: BP 120/63
[2024-01-28] MEDS: FUROSEMIDE 20 MG TAB PO SCH (09:00)
[2024-01-28] MEDS ORDERED: GABAPENTIN 300 MG CAP PO PRN (09:35)
[2024-01-28] MEDS ORDERED: METH4PACK PO (09:41)
[2024-01-28] MEDS ORDERED: GUAI100S51 PO (09:41)
[2024-01-28] MEDS ORDERED: NITR0.2D5 TOP (09:44)
[2024-01-28] MEDS ORDERED: NITR0.3S4 SL (09:46)
[2024-01-28] MEDS ORDERED: SPIRONOLACTONE 12.5MG PER 1/2 TABLET PO ONE (11:00)
[2024-01-28] MEDS ORDERED: SPIRONOLACTONE 12.5MG PER 1/2 TABLET PO SCH (21:00)
== END 2024-01-28 11:56 | disposition home or self-care (01) ==
LOC: M ED 07:55 → EDBD 07:55 → M ED INP 11:32 → ENRESERVTM 13:30 → ENRESERVDT 13:30 → M MSPAV 14:46
PROVIDERS: ADMIT Student in an Organized Health Care Education/Training Program; ATTEND Student in an Organized Health Care Education/Training Program
DX: J44.1 Chronic obstructive pulmonary disease with (acute) exacerbation (principal); R55 Syncope and collapse; I50.32 Chronic diastolic (congestive) heart failure; G62.9 Polyneuropathy, unspecified; R07.89 Other chest pain; M48.00 Spinal stenosis, site unspecified; E66.9 Obesity, unspecified; K76.0 Fatty (change of) liver, not elsewhere classified; Z90.49 Acquired absence of other specified parts of digestive tract; Z90.79 Acquired absence of other genital organ(s); Z87.891 Personal history of nicotine dependence; Z79.899 Other long term (current) drug therapy
CPT/HCPCS: 36415; 36600; 71045; 80048; 80053; 80076; 82550; 82553; 82803; 84145; 84484; 85025; 85027; 87486; 87581; 87633; 87798; 93005; 93041; 93306; 94640; 94760; 96374; 96375; 96376; 97116; 97161; 99285; G0378; J1100; J2405; J2919

== ENCOUNTER 2024-04-27 16:32 | Emergency (ER) | payer BC, MEDICARE ==
[~2024-04-27] VITALS: Ht 157.5 cm; Wt 102.7 kg
[~2024-04-27 16:32] MED LIST changes: +DOXY-440 PO; -DOXY-444 PO; +FLUT15.820 NARES; +GUAI100S51 PO; +METH4PACK PO; +NITR0.2D5 TOP; +NITR0.3S4 SL
[2024-04-27 17:23] LABS: BASO % 0.4 % (0.0-1.0); EOS # 0.2 10^3/uL (0.0-0.5); EOS % 2.4 % (0.0-3.0); HEMOGLOBIN 12.7 g/dl (12.0-15.5); LYMPH # 1.3 10^3/uL (1.5-5.0); LYMPH % 13.3 % (24.0-44.0); MEAN CORPUSCULAR HEMOGLOBIN 27.7 pg (27.0-33.0); MEAN CORPUSCULAR VOLUME 89.3 fl (80.0-96.0); MONO # 0.8 10^3/uL (0.0-0.8); MONO % 7.9 % (2.0-8.0); NEUTROPHILS # 7.1 10^3/uL (1.5-8.5); NEUTROPHILS % 74.9 % (36.0-66.0); PLATELET COUNT, AUTOMATED 312 10^3/uL (150-450); RED BLOOD COUNT 4.59 10^6/uL (4.00-5.40); WHITE BLOOD COUNT 9.5 10^3/uL (4.0-10.0)
[2024-04-27 17:46] LABS: CPK CREATINE PHOSPHOKINASE 44 U/L (34-145)
[2024-04-27 17:50] LABS: BLOOD UREA NITROGEN 15 MG/DL (9-23); CALCIUM LEVEL 8.7 MG/DL (8.3-10.6); CARBON DIOXIDE LEVEL 29 MMOL/L (20-31); CHLORIDE LEVEL 106 MMOL/L (98-107); CK-MB VALUE MASS < 1.0 NG/ML (<3.6); CREATININE FOR GFR 0.74 MG/DL (0.55-1.30); FREE T4 1.06 NG/DL (0.89-1.76); GLOMERULAR FILTRATION RATE > 60.0 (>39); GLUCOSE, FASTING 80 MG/DL (74-106); MAGNESIUM LEVEL 1.6 MG/DL (1.8-2.4); MB/CK RELATIVE INDEX 2.27 (< OR =4); POTASSIUM SERUM 3.9 MMOL/L (3.5-5.1); SODIUM LEVEL 143 MMOL/L (136-145); THYROID STIMULATING HORMONE 0.845 uIU/ML (0.55-4.78)
[2024-04-27] MEDS ORDERED: ISOVUE-370 76% 100ML VIAL As Ordered ONE (18:43)
[2024-04-27] MEDS: ONDANSETRON 4MG 2ML VIAL IV ONE (19:47)
[2024-04-27 21:15] VITALS: TEMP 98.4; O2SAT 93
[2024-04-27] MEDS: cefTRIAXone SOD 1 GM in D5W MINI-BAG PLUS 50 ML IV ONE (21:17)
[2024-04-27 21:24] VITALS: BP 137/65
[2024-04-27] MEDS ORDERED: CEFD1CAP9 PO (21:51)
[2024-04-27] MEDS ORDERED: ONDA-282 PO (21:51)
[2024-04-27] MEDS: ONDANSETRON 4MG ORAL DISINTEGRATING TAB PO ONE (21:55)
== END 2024-04-27 22:05 | disposition home or self-care (01) ==
LOC: EDBD 16:32 → M ED 16:32
DX: R55 Syncope and collapse (principal); N39.0 Urinary tract infection, site not specified; I45.81 Long QT syndrome; I50.22 Chronic systolic (congestive) heart failure; E11.9 Type 2 diabetes mellitus without complications; J44.9 Chronic obstructive pulmonary disease, unspecified; J45.909 Unspecified asthma, uncomplicated; Z79.51 Long term (current) use of inhaled steroids; Z79.2 Long term (current) use of antibiotics; Z79.899 Other long term (current) drug therapy
CPT/HCPCS: 71045; 74177; 80048; 81001; 82550; 82553; 83735; 84439; 84443; 84484; 85025; 87088; 87186; 93005; 93041; 94760; 96365; 96374; 99285; J0696; J2405; Q9967

== ENCOUNTER 2024-05-24 13:52 | Observation (INO) | payer MEDICARE ==
[~2024-05-24] VITALS: Ht 160 cm; Wt 100.1 kg
[~2024-05-24 13:52] MED LIST changes: +ONDA-282 PO
[2024-05-24] MEDS: IPRATROPIUM 0.5MG/ALBUTEROL 2.5MG INH SOL UD 3ML (DUONEB) NEB PRN (14:58)
[2024-05-24 15:14] LABS: BASO % 0.5 % (0.0-1.0); EOS # 0.3 10^3/uL (0.0-0.5); EOS % 3.3 % (0.0-3.0); HEMATOCRIT 39.4 % (36.0-47.0); HEMOGLOBIN 12.6 g/dl (12.0-15.5); LYMPH # 1.4 10^3/uL (1.5-5.0); LYMPH % 18.5 % (24.0-44.0); MEAN CORPUSCULAR HEMOGLOBIN 28.3 pg (27.0-33.0); MEAN CORPUSCULAR VOLUME 88.5 fl (80.0-96.0); MONO # 0.5 10^3/uL (0.0-0.8); MONO % 6.4 % (2.0-8.0); NEUTROPHILS # 5.3 10^3/uL (1.5-8.5); NEUTROPHILS % 70.2 % (36.0-66.0); PLATELET COUNT, AUTOMATED 302 10^3/uL (150-450); RED BLOOD COUNT 4.45 10^6/uL (4.00-5.40); WHITE BLOOD COUNT 7.6 10^3/uL (4.0-10.0)
[2024-05-24 15:20] LABS: ABG BASE EXCESS -1.8 (-2.0-2.0); ABG HCO3 23.5 MMOL/L (22.0-26.0); ABG O2 SATURATION 98.4 % (95.0-99.0); ABG PARTIAL PRESSURE CO2 41.7 mmHg (35.0-45.0); ABG PARTIAL PRESSURE O2 152.4 mmHg (75.0-100.0); ABG TOTAL CO2 24.7 MMOL/L (23.0-31.0); ABG pH (ARTERIAL) 7.368 UNITS (7.350-7.450)
[2024-05-24] MEDS: methylPREDNISolone 125MG 2ML VIAL IV ONE (15:23)
[2024-05-24 15:42] LABS: LIPASE 28 U/L (12-53)
[2024-05-24 15:44] LABS: ALBUMIN 3.6 G/DL (3.2-5.2); ALKALINE PHOSPHATASE 142 U/L (46-116); ALT/SGPT 22 U/L (7.0-40); AST/SGOT 10 U/L (<34); BILIRUBIN,DIRECT < 0.1 MG/DL (<0.4); BILIRUBIN,TOTAL 0.3 MG/DL (0.3-1.2); BLOOD UREA NITROGEN 15 MG/DL (9-23); CALCIUM LEVEL 8.9 MG/DL (8.3-10.6); CARBON DIOXIDE LEVEL 31 MMOL/L (20-31); CHLORIDE LEVEL 106 MMOL/L (98-107); CK-MB VALUE MASS < 1.0 NG/ML (<3.6); CPK CREATINE PHOSPHOKINASE 33 U/L (34-145); CREATININE FOR GFR 0.57 MG/DL (0.55-1.30); GLOMERULAR FILTRATION RATE > 60.0 (>39); GLUCOSE, FASTING 131 MG/DL (74-106); MB/CK RELATIVE INDEX 3.03 (< OR =4); POTASSIUM SERUM 3.7 MMOL/L (3.5-5.1); SODIUM LEVEL 139 MMOL/L (136-145); TOTAL PROTEIN 6.7 G/DL (5.7-8.2)
[2024-05-24] MEDS ORDERED: ISOVUE-370 76% 100ML VIAL As Ordered ONE (16:07)
[2024-05-24 16:45] LABS: CK-MB VALUE MASS < 1.0 NG/ML (<3.6)
[2024-05-24 16:52] LABS: CPK CREATINE PHOSPHOKINASE 37 U/L (34-145)
[2024-05-24 17:12] VITALS: O2SAT 94
[2024-05-24] MEDS ORDERED: NITROGLYCERIN 0.3MG SUBL TAB SL PRN (18:50)
[2024-05-24] MEDS ORDERED: MAALOX 30 ML SUSP *UDC PO PRN (18:50)
[2024-05-24] MEDS ORDERED: IPRATROPIUM 0.5MG/ALBUTEROL 2.5MG INH SOL UD 3ML (DUONEB) NEB PRN (18:50)
[2024-05-24] MEDS ORDERED: ACETAMINOPHEN TAB 650MG DOSE (2X325MG) PO PRN (18:50)
[2024-05-24] MEDS ORDERED: OXYM15SP2 (19:23)
[2024-05-24] MEDS ORDERED: IPRA0.00 NEB (19:23)
[2024-05-24] MEDS ORDERED: OMEP40CA5 PO (19:23)
[2024-05-24] MEDS ORDERED: LORA-1041 PO (19:23)
[2024-05-24] MEDS ORDERED: HOME MED LIST COMPLETE! XX SCH (19:25)
[2024-05-24 19:31] LABS: HEMOGLOBIN A1c 5.8 % (4.0-6.0)
[2024-05-24] MEDS ORDERED: GABAPENTIN 300 MG CAP PO PRN (19:35)
[2024-05-24] MEDS ORDERED: PILL CUTTER 1 EACH XX PRN (19:45)
[2024-05-24 20:24] LABS: PROCALCITONIN 0.09 ng/ml
[2024-05-24] MEDS: IPRATROPIUM 0.5MG/ALBUTEROL 2.5MG INH SOL UD 3ML (DUONEB) NEB SCH (20:27)
[2024-05-24] MEDS: OXYMETAZOLINE 0.05% NASAL SPRAY (AFRIN) SCH (20:58)
[2024-05-24] MEDS: PANTOPRAZOLE 40MG TAB (PROTONIX) PO SCH (20:59)
[2024-05-24] MEDS: SPIRONOLACTONE 12.5MG PER 1/2 TABLET PO SCH (20:59)
[2024-05-24 22:10] VITALS: BP 131/69; TEMP 97.3; O2SAT 95
[2024-05-25] MEDS: ONDANSETRON 4MG TAB PO PRN (00:28)
[2024-05-25 03:30] VITALS: BP 152/72; TEMP 97.1; O2SAT 94
[2024-05-25] MEDS: PROMETHAZINE 25 MG TAB PO ONE (03:47)
[2024-05-25 06:20] LABS: BASO % 0.2 % (0.0-1.0); EOS % 0.1 % (0.0-3.0); HEMOGLOBIN 12.4 g/dl (12.0-15.5); LYMPH # 0.8 10^3/uL (1.5-5.0); LYMPH % 7.5 % (24.0-44.0); MEAN CORPUSCULAR HEMOGLOBIN 28.3 pg (27.0-33.0); MEAN CORPUSCULAR HGB CONC 31.8 g/dl (32.0-36.5); MONO # 0.5 10^3/uL (0.0-0.8); MONO % 4.3 % (2.0-8.0); NEUTROPHILS # 9.1 10^3/uL (1.5-8.5); NEUTROPHILS % 86.4 % (36.0-66.0); PLATELET COUNT, AUTOMATED 312 10^3/uL (150-450); RED BLOOD COUNT 4.38 10^6/uL (4.00-5.40); WHITE BLOOD COUNT 10.5 10^3/uL (4.0-10.0)
[2024-05-25 07:31] LABS: BLOOD UREA NITROGEN 13 MG/DL (9-23); CALCIUM LEVEL 9.2 MG/DL (8.3-10.6); CARBON DIOXIDE LEVEL 25 MMOL/L (20-31); CHLORIDE LEVEL 106 MMOL/L (98-107); CREATININE FOR GFR 0.57 MG/DL (0.55-1.30); GLOMERULAR FILTRATION RATE > 60.0 (>39); GLUCOSE, FASTING 153 MG/DL (74-106); MAGNESIUM LEVEL 1.7 MG/DL (1.8-2.4); POTASSIUM SERUM 4.7 MMOL/L (3.5-5.1); SODIUM LEVEL 139 MMOL/L (136-145)
[2024-05-25 07:55] VITALS: BP 123/60; TEMP 97.3; O2SAT 95
[2024-05-25] MEDS: SUCRALFATE SUSP 1GM/10ML UD PO SCH (08:26)
[2024-05-25] MEDS: METOCLOPRAMIDE INJ 10MG/2ML VIAL IV SCH (08:26)
[2024-05-25] MEDS: predniSONE 20 MG TAB PO SCH (08:27)
[2024-05-25] MEDS: LORATADINE 10 MG TAB PO SCH (08:27)
[2024-05-25] MEDS: FUROSEMIDE 20 MG TAB PO SCH (08:27)
[2024-05-25] MEDS: ENOXAPARIN 40MG/0.4ML SYRINGE (J1650 PER 10MG) SC SCH (08:28)
[2024-05-25 12:03] VITALS: BP 121/59; TEMP 96.4; O2SAT 94
[2024-05-25 16:07] VITALS: BP 146/65; TEMP 96.5; O2SAT 93
[2024-05-25 19:44] VITALS: BP 122/59; TEMP 97.9; O2SAT 95
[2024-05-25 23:38] VITALS: BP 125/58; TEMP 98.7; O2SAT 92
[2024-05-26 03:51] VITALS: BP 100/61; TEMP 97; O2SAT 94
[2024-05-26 05:21] LABS: HEMATOCRIT 38.1 % (36.0-47.0); HEMOGLOBIN 11.8 g/dl (12.0-15.5); MEAN CORPUSCULAR HEMOGLOBIN 27.8 pg (27.0-33.0); MEAN CORPUSCULAR VOLUME 89.9 fl (80.0-96.0); PLATELET COUNT, AUTOMATED 315 10^3/uL (150-450); RED BLOOD COUNT 4.24 10^6/uL (4.00-5.40); WHITE BLOOD COUNT 10.4 10^3/uL (4.0-10.0)
[2024-05-26 05:53] LABS: BLOOD UREA NITROGEN 20 MG/DL (9-23); CALCIUM LEVEL 8.9 MG/DL (8.3-10.6); CARBON DIOXIDE LEVEL 30 MMOL/L (20-31); CHLORIDE LEVEL 107 MMOL/L (98-107); CREATININE FOR GFR 0.69 MG/DL (0.55-1.30); GLOMERULAR FILTRATION RATE > 60.0 (>39); GLUCOSE, FASTING 107 MG/DL (74-106); SODIUM LEVEL 143 MMOL/L (136-145)
[2024-05-26 07:52] VITALS: BP 132/60; TEMP 97.4; O2SAT 90
[2024-05-26] MEDS ORDERED: SUCR1ORA PO (11:35)
[2024-05-26] MEDS ORDERED: PANT40TA29 PO (11:35)
[2024-05-26] MEDS ORDERED: METO5TAB2 PO (11:35)
[2024-05-26] MEDS ORDERED: PRED20TA PO (11:35)
== END 2024-05-26 13:23 | disposition home or self-care (01) ==
LOC: M ED 13:52 → M ED INP 18:27 → M PCU 22:14
PROVIDERS: ADMIT Internal Medicine; ATTEND Internal Medicine
DX: J96.01 Acute respiratory failure with hypoxia (principal); J44.1 Chronic obstructive pulmonary disease with (acute) exacerbation; K76.0 Fatty (change of) liver, not elsewhere classified; G62.9 Polyneuropathy, unspecified; I50.30 Unspecified diastolic (congestive) heart failure; Z87.891 Personal history of nicotine dependence; K21.9 Gastro-esophageal reflux disease without esophagitis; Z79.899 Other long term (current) drug therapy; Z79.52 Long term (current) use of systemic steroids; Z79.51 Long term (current) use of inhaled steroids
CPT/HCPCS: 36415; 36600; 71045; 71275; 74177; 80048; 80076; 81001; 82550; 82553; 82803; 83036; 83690; 83735; 83880; 84145; 84443; 84484; 85025; 85027; 87486; 87581; 87633; 87798; 93005; 93041; 94640; 94760; 96372; 96374; 96375; 96376; 99285; G0378; J1650; J2765; J2919; J7512; Q9967

== ENCOUNTER 2024-06-10 18:25 | Inpatient (IN) | payer MEDICARE ==
[~2024-06-10] VITALS: Ht 160 cm; Wt 105.5 kg
[~2024-06-10 18:25] MED LIST changes: +GABA-1490 PO; -GABA600T4 PO; +IPRA0.00 NEB; +LORA-1041 PO; +METO5TAB2 PO; +OMEP40CA5 PO; +OXYM15SP2; +SUCR1ORA PO
[2024-06-10] MEDS ORDERED: FLUTISP NARES (19:03)
[2024-06-10 19:27] LABS: BASO % 0.4 % (0.0-1.0); EOS # 0.2 10^3/uL (0.0-0.5); EOS % 2.1 % (0.0-3.0); HEMATOCRIT 37.7 % (36.0-47.0); HEMOGLOBIN 11.8 g/dl (12.0-15.5); LYMPH # 1.1 10^3/uL (1.5-5.0); LYMPH % 11.3 % (24.0-44.0); MEAN CORPUSCULAR HGB CONC 31.3 g/dl (32.0-36.5); MEAN CORPUSCULAR VOLUME 89.3 fl (80.0-96.0); MONO # 0.5 10^3/uL (0.0-0.8); MONO % 5.4 % (2.0-8.0); NEUTROPHILS # 7.8 10^3/uL (1.5-8.5); NEUTROPHILS % 77.2 % (36.0-66.0); PLATELET COUNT, AUTOMATED 279 10^3/uL (150-450); RED BLOOD COUNT 4.22 10^6/uL (4.00-5.40); WHITE BLOOD COUNT 10.1 10^3/uL (4.0-10.0)
[2024-06-10 19:29] LABS: VENOUS BASE EXCESS -0.8 (-2.0-2.0); VENOUS HCO3 25.7 MMOL/L (23.0-27.0); VENOUS O2 SATURATION 91.2 % (60.0-80.0); VENOUS PARTIAL PRESSURE CO2 50.1 mmHg (38.0-50.0); VENOUS PARTIAL PRESSURE O2 61.4 mmHg (30.0-50.0); VENOUS PH 7.328 UNITS (7.330-7.430); VENOUS STANDARD HCO3 23.7 MMOL/L; VENOUS TOTAL CO2 27.2 MMOL/L (24.0-28.0)
[2024-06-10 19:56] LABS: ALBUMIN 3.5 G/DL (3.2-5.2); ALKALINE PHOSPHATASE 158 U/L (46-116); ALT/SGPT 36 U/L (7.0-40); AST/SGOT 32 U/L (<34); BILIRUBIN,DIRECT < 0.1 MG/DL (<0.4); BILIRUBIN,TOTAL 0.2 MG/DL (0.3-1.2); BLOOD UREA NITROGEN 18 MG/DL (9-23); CALCIUM LEVEL 8.9 MG/DL (8.3-10.6); CARBON DIOXIDE LEVEL 28 MMOL/L (20-31); CHLORIDE LEVEL 109 MMOL/L (98-107); CREATININE FOR GFR 0.76 MG/DL (0.55-1.30); GLOMERULAR FILTRATION RATE > 60.0 (>39); GLUCOSE, FASTING 138 MG/DL (74-106); POTASSIUM SERUM 3.9 MMOL/L (3.5-5.1); SODIUM LEVEL 142 MMOL/L (136-145); TOTAL PROTEIN 6.4 G/DL (5.7-8.2)
[2024-06-10 19:57] LABS: CK-MB VALUE MASS < 1.0 NG/ML (<3.6)
[2024-06-10 19:59] LABS: CPK CREATINE PHOSPHOKINASE 41 U/L (34-145); MB/CK RELATIVE INDEX 2.43 (< OR =4)
[2024-06-10 20:48] LABS: CPK CREATINE PHOSPHOKINASE 42 U/L (34-145)
[2024-06-10 21:00] LABS: APPEARANCE, URINE HAZY (CLEAR); BACTERIA, URINE AUTO 1+ (NEGATIVE); BILIRUBIN, URINE AUTO 1+ (NEGATIVE); BLOOD, URINE BLOOD NEGATIVE (NEGATIVE); COLOR, URINE YELLOW (YELLOW); GLUCOSE, URINE (UA) AUTO NEGATIVE (NEGATIVE); KETONE, URINE AUTO NEGATIVE (NEGATIVE); LEUKOCYTE ESTERASE, URINE AUTO 3+ (NEGATIVE); MUCUS, URINE SMALL (NEGATIVE); NITRITE, URINE AUTO POSITIVE (NEGATIVE); PROTEIN, URINE AUTO 1+ mg/dL (NEGATIVE); RBC, URINE AUTO 0 /HPF (0-3); SPECIFIC GRAVITY URINE AUTO 1.036 (1.002-1.035); SQUAMOUS EPITHELIAL CELL UR AU 5 /HPF (0-6); UROBILINOGEN, URINE AUTO 0.2 mg/dL (0.0-2.0); WBC, URINE AUTO 41 /HPF (0-3)
[2024-06-10] MEDS: LIDOCAINE 5% (LIDODERM) PATCH TD SCH (21:00)
[2024-06-10] MEDS ORDERED: ISOVUE-370 76% 100ML VIAL As Ordered ONE (21:15)
[2024-06-10] MEDS: IPRATROPIUM 0.5MG/ALBUTEROL 2.5MG INH SOL UD 3ML (DUONEB) NEB ONE (22:03)
[2024-06-10 22:20] LABS: CK-MB VALUE MASS < 1.0 NG/ML (<3.6); MB/CK RELATIVE INDEX 2.38 (< OR =4)
[2024-06-11] MEDS ORDERED: MOM 30ML SUSPENSION UDC PO PRN (00:30)
[2024-06-11] MEDS ORDERED: ALBUTEROL SULFATE 2.5MG/0.5ML INH NEB SOLN NEB PRN (00:30)
[2024-06-11] MEDS: IPRATROPIUM 0.5MG/ALBUTEROL 2.5MG INH SOL UD 3ML (DUONEB) NEB SCH (01:07)
[2024-06-11] MEDS ORDERED: NITR0.4S14 SL (01:50)
[2024-06-11] MEDS ORDERED: SUCR1ORA PO (01:50)
[2024-06-11] MEDS ORDERED: ACET-897 PO (01:50)
[2024-06-11] MEDS ORDERED: ASPI81TA26 PO (01:50)
[2024-06-11] MEDS ORDERED: METO5TAB2 PO (01:50)
[2024-06-11] MEDS ORDERED: PANT40TA29 PO (01:52)
[2024-06-11] MEDS ORDERED: OMEP40CA4 PO (01:52)
[2024-06-11] MEDS ORDERED: HOME MED LIST COMPLETE! XX SCH (01:55)
[2024-06-11] MEDS: AZITHROMYCIN INJ 500 MG, VIAL MATE ADAPTER 1 EACH in NS 250 ML IV SCH (02:08)
[2024-06-11] MEDS: methylPREDNISolone 125MG 2ML VIAL IV SCH (02:09)
[2024-06-11 02:42] VITALS: BP 130/75; TEMP 97.2; O2SAT 93
[2024-06-11 04:53] LABS: VENOUS BASE EXCESS -0.4 (-2.0-2.0); VENOUS HCO3 24.4 MMOL/L (23.0-27.0); VENOUS PARTIAL PRESSURE CO2 40.5 mmHg (38.0-50.0); VENOUS PARTIAL PRESSURE O2 199.3 mmHg (30.0-50.0); VENOUS PH 7.398 UNITS (7.330-7.430); VENOUS STANDARD HCO3 24.2 MMOL/L; VENOUS TOTAL CO2 25.7 MMOL/L (24.0-28.0)
[2024-06-11] MEDS ORDERED: NYSTATIN 100,000 UNITS/GM TOPICAL PWD 15GM TOP PRN (05:30)
[2024-06-11 06:15] VITALS: BP 129/73; TEMP 97.3; O2SAT 93
[2024-06-11] MEDS: PROMETHAZINE 25 MG TAB PO ONE (06:32)
[2024-06-11] MEDS: NS 500 ML IV ONE ×2 (07:37→18:19)
[2024-06-11] MEDS: ENOXAPARIN 40MG/0.4ML SYRINGE (J1650 PER 10MG) SC SCH (09:21)
[2024-06-11 12:00] VITALS: BP 126/73; TEMP 97.9; O2SAT 97
[2024-06-11] MEDS: methylPREDNISolone 40MG 1ML VIAL IV SCH (14:03)
[2024-06-11] MEDS: ACETAMINOPHEN TAB 650MG DOSE (2X325MG) PO PRN (14:11)
[2024-06-11 20:00] VITALS: BP 127/78; TEMP 98.6; O2SAT 93
[2024-06-12 04:00] VITALS: BP 119/67; TEMP 97.9; O2SAT 94
[2024-06-12 06:27] LABS: HEMATOCRIT 36.7 % (36.0-47.0); HEMOGLOBIN 11.6 g/dl (12.0-15.5); MEAN CORPUSCULAR HGB CONC 31.6 g/dl (32.0-36.5); MEAN CORPUSCULAR VOLUME 88.6 fl (80.0-96.0); PLATELET COUNT, AUTOMATED 282 10^3/uL (150-450); RED BLOOD COUNT 4.14 10^6/uL (4.00-5.40); WHITE BLOOD COUNT 14.8 10^3/uL (4.0-10.0)
[2024-06-12 06:50] LABS: ALBUMIN 3.5 G/DL (3.2-5.2); ALKALINE PHOSPHATASE 136 U/L (46-116); ALT/SGPT 30 U/L (7.0-40); AST/SGOT 8 U/L (<34); BILIRUBIN,TOTAL 0.3 MG/DL (0.3-1.2); BLOOD UREA NITROGEN 18 MG/DL (9-23); CALCIUM LEVEL 9.5 MG/DL (8.3-10.6); CARBON DIOXIDE LEVEL 27 MMOL/L (20-31); CHLORIDE LEVEL 108 MMOL/L (98-107); CREATININE FOR GFR 0.58 MG/DL (0.55-1.30); GLOMERULAR FILTRATION RATE > 60.0 (>39); GLUCOSE, FASTING 175 MG/DL (74-106); MAGNESIUM LEVEL 1.8 MG/DL (1.8-2.4); POTASSIUM SERUM 4.4 MMOL/L (3.5-5.1); SODIUM LEVEL 142 MMOL/L (136-145); TOTAL PROTEIN 6.3 G/DL (5.7-8.2)
[2024-06-12 06:52] LABS: LYMPHOCYTES 6 % (16-44); METAMYELOCYTES 1 % (0-0); MONOCYTES 2 % (0-5); MYELOCYTES 1 % (0-0); NEUTROPHILS 89 % (28-66)
[2024-06-12 06:53] LABS: HYPOCHROMASIA 1+; PLATELET CLUMPS SMALL AMT; PLATELET ESTIMATE NORMAL (NORMAL)
[2024-06-12] MEDS ORDERED: IPRATROPIUM 0.5MG/ALBUTEROL 2.5MG INH SOL UD 3ML (DUONEB) NEB PRN (09:50)
[2024-06-12] MEDS ORDERED: ALBUTEROL 90 MCG/ACT 8GM HFA INHALER INH PRN (09:50)
[2024-06-12] MEDS: cefTRIAXone SOD 2 GM in D5W MINI-BAG PLUS 50 ML IV SCH (11:19)
[2024-06-12] MEDS: NS 500 ML IV ONE ×2 (11:19→21:55)
[2024-06-12 12:00] VITALS: BP 117/67; TEMP 97.9; O2SAT 95
[2024-06-12] MEDS: SUCRALFATE SUSP 1GM/10ML UD PO SCH (12:36)
[2024-06-12] MEDS: SPIRONOLACTONE 12.5MG PER 1/2 TABLET PO SCH (12:37)
[2024-06-12] MEDS: FUROSEMIDE 20 MG TAB PO SCH (12:37)
[2024-06-12] MEDS: OMEPRAZOLE 20MG CAP PO SCH (12:37)
[2024-06-12 20:00] VITALS: BP 126/65; TEMP 97.5; O2SAT 93
[2024-06-13 04:00] VITALS: BP 133/75; TEMP 97.7; O2SAT 94
[2024-06-13 06:37] LABS: HEMATOCRIT 36.7 % (36.0-47.0); HEMOGLOBIN 11.7 g/dl (12.0-15.5); MEAN CORPUSCULAR HEMOGLOBIN 28.3 pg (27.0-33.0); MEAN CORPUSCULAR HGB CONC 31.9 g/dl (32.0-36.5); MEAN CORPUSCULAR VOLUME 88.6 fl (80.0-96.0); PLATELET COUNT, AUTOMATED 281 10^3/uL (150-450); RED BLOOD COUNT 4.14 10^6/uL (4.00-5.40); WHITE BLOOD COUNT 14.1 10^3/uL (4.0-10.0)
[2024-06-13 06:57] LABS: ALBUMIN 3.5 G/DL (3.2-5.2); ALKALINE PHOSPHATASE 130 U/L (46-116); ALT/SGPT 31 U/L (7.0-40); AST/SGOT 8 U/L (<34); BILIRUBIN,TOTAL 0.3 MG/DL (0.3-1.2); BLOOD UREA NITROGEN 21 MG/DL (9-23); CALCIUM LEVEL 9.5 MG/DL (8.3-10.6); CARBON DIOXIDE LEVEL 28 MMOL/L (20-31); CHLORIDE LEVEL 105 MMOL/L (98-107); CREATININE FOR GFR 0.58 MG/DL (0.55-1.30); GLOMERULAR FILTRATION RATE > 60.0 (>39); GLUCOSE, FASTING 170 MG/DL (74-106); POTASSIUM SERUM 4.6 MMOL/L (3.5-5.1); SODIUM LEVEL 141 MMOL/L (136-145); TOTAL PROTEIN 6.5 G/DL (5.7-8.2)
[2024-06-13 07:11] LABS: LYMPHOCYTES 6 % (16-44); METAMYELOCYTES 1 % (0-0); MONOCYTES 1 % (0-5); MYELOCYTES 1 % (0-0); NEUTROPHILS 89 % (28-66)
[2024-06-13 07:14] LABS: HYPOCHROMASIA 1+; PLATELET ESTIMATE NORMAL (NORMAL)
[2024-06-13] MEDS: NS 500 ML IV ONE (07:34)
[2024-06-13] MEDS: PIPERACILLIN/TAZOBACTAM SOD 3.375 GM in D5W MINI-BAG PLUS 50 ML IV SCH (08:29)
[2024-06-13] MEDS: FLUTICASONE PROP 0.05% NASAL SPRAY 16 GM (FLONASE) NARES SCH (08:29)
[2024-06-13] MEDS: LORATADINE 10 MG TAB PO SCH (08:32)
[2024-06-13 08:52] LABS: MAGNESIUM LEVEL 1.9 MG/DL (1.8-2.4)
[2024-06-13] MEDS: methylPREDNISolone 40MG 1ML VIAL IV SCH ×2 (10:14→22:30)
[2024-06-13 12:00] VITALS: BP 132/79; TEMP 96.8; O2SAT 91
[2024-06-13 19:35] VITALS: BP 125/77; TEMP 97.7; O2SAT 92
[2024-06-13] MEDS: NS 250 ML IV ONE (20:53)
[2024-06-14] MEDS: METOCLOPRAMIDE 5 MG TAB PO PRN (00:59)
[2024-06-14 01:30] VITALS: O2SAT 93
[2024-06-14 04:00] VITALS: BP 124/74; TEMP 97.3; O2SAT 94
[2024-06-14 05:58] LABS: BASO % 0.2 % (0.0-1.0); EOS % 0.1 % (0.0-3.0); HEMATOCRIT 37.7 % (36.0-47.0); LYMPH # 0.8 10^3/uL (1.5-5.0); MEAN CORPUSCULAR HGB CONC 31.8 g/dl (32.0-36.5); MEAN CORPUSCULAR VOLUME 88.1 fl (80.0-96.0); MONO # 0.5 10^3/uL (0.0-0.8); MONO % 4.7 % (2.0-8.0); NEUTROPHILS # 9.7 10^3/uL (1.5-8.5); NEUTROPHILS % 84.4 % (36.0-66.0); PLATELET COUNT, AUTOMATED 292 10^3/uL (150-450); RED BLOOD COUNT 4.28 10^6/uL (4.00-5.40); WHITE BLOOD COUNT 11.5 10^3/uL (4.0-10.0)
[2024-06-14 06:22] LABS: BLOOD UREA NITROGEN 22 MG/DL (9-23); CALCIUM LEVEL 9.1 MG/DL (8.3-10.6); CARBON DIOXIDE LEVEL 28 MMOL/L (20-31); CHLORIDE LEVEL 101 MMOL/L (98-107); CREATININE FOR GFR 0.71 MG/DL (0.55-1.30); GLOMERULAR FILTRATION RATE > 60.0 (>39); GLUCOSE, FASTING 172 MG/DL (74-106); POTASSIUM SERUM 4.1 MMOL/L (3.5-5.1); SODIUM LEVEL 138 MMOL/L (136-145)
[2024-06-14 08:00] VITALS: BP 136/78; TEMP 97.6; O2SAT 95
[2024-06-14] MEDS ORDERED: PILL CUTTER 1 EACH XX ONE (09:57)
[2024-06-14] MEDS: ASPIRIN 81MG ENTERIC TABLET PO SCH (10:01)
[2024-06-14] MEDS ORDERED: ALBUTEROL 90 MCG/ACT 8GM HFA INHALER INH PRN (11:00)
[2024-06-14 12:00] VITALS: BP 124/73; TEMP 97.9; O2SAT 92
[2024-06-14] MEDS: ADVAIR HFA 115/21MCG INHALER INH SCH (19:25)
[2024-06-14] MEDS: CEFDINIR 300 MG CAP (OMNICEF) PO SCH (20:16)
[2024-06-14 20:53] VITALS: BP 125/58; TEMP 97.5; O2SAT 92
[2024-06-14] MEDS ORDERED: AZITHROMYCIN 250MG TABLET PO SCH (21:00)
[2024-06-14] MEDS ORDERED: FLUTICASONE HFA 220 MCG 12 GM INHALER (FLOVENT) INH SCH (21:00)
[2024-06-15 03:45] VITALS: BP 121/54; TEMP 97.5; O2SAT 95
[2024-06-15 05:00] VITALS: O2SAT 94
[2024-06-15 07:21] LABS: BASO % 0.3 % (0.0-1.0); EOS # 0.2 10^3/uL (0.0-0.5); EOS % 1.4 % (0.0-3.0); HEMATOCRIT 40.2 % (36.0-47.0); HEMOGLOBIN 12.8 g/dl (12.0-15.5); LYMPH # 2.1 10^3/uL (1.5-5.0); LYMPH % 19.5 % (24.0-44.0); MEAN CORPUSCULAR HEMOGLOBIN 27.9 pg (27.0-33.0); MEAN CORPUSCULAR HGB CONC 31.8 g/dl (32.0-36.5); MEAN CORPUSCULAR VOLUME 87.6 fl (80.0-96.0); MONO # 0.9 10^3/uL (0.0-0.8); MONO % 8.1 % (2.0-8.0); NEUTROPHILS # 7.3 10^3/uL (1.5-8.5); NEUTROPHILS % 68.2 % (36.0-66.0); PLATELET COUNT, AUTOMATED 298 10^3/uL (150-450); RED BLOOD COUNT 4.59 10^6/uL (4.00-5.40); WHITE BLOOD COUNT 10.7 10^3/uL (4.0-10.0)
[2024-06-15] MEDS: TIOTROPIUM INHALER/CAPSULE (SPIRIVA) INH SCH (07:40)
[2024-06-15 07:44] LABS: BLOOD UREA NITROGEN 26 MG/DL (9-23); CALCIUM LEVEL 9.5 MG/DL (8.3-10.6); CARBON DIOXIDE LEVEL 32 MMOL/L (20-31); CHLORIDE LEVEL 103 MMOL/L (98-107); CREATININE FOR GFR 0.67 MG/DL (0.55-1.30); GLOMERULAR FILTRATION RATE > 60.0 (>39); GLUCOSE, FASTING 106 MG/DL (74-106); SODIUM LEVEL 142 MMOL/L (136-145)
[2024-06-15] MEDS ORDERED: E-Z-PAQUE 96% w/w SUSP 176GM BTL As Ordered ONE (08:56)
[2024-06-15] MEDS ORDERED: E-Z-GAS II EFFERVESCENT PACKET (SODIUM BICARB./CITRIC ACID/SIMETHICONE) As Ordered ONE (09:27)
[2024-06-15] MEDS ORDERED: E-Z-HD 98% w/w 340GM SUSP BTL As Ordered ONE (09:27)
[2024-06-15 12:00] VITALS: BP 125/60; TEMP 97.5; O2SAT 91
[2024-06-15 14:00] VITALS: O2SAT 90
[2024-06-15] MEDS: IPRATROPIUM 0.5MG/ALBUTEROL 2.5MG INH SOL UD 3ML (DUONEB) NEB SCH (15:19)
[2024-06-15 16:30] VITALS: O2SAT 90
[2024-06-15] MEDS: BUDESONIDE 0.5 MG/2 ML INHALATION SUSPENSION NEB SCH (19:29)
[2024-06-15 20:03] VITALS: BP 126/62; TEMP 97.9; O2SAT 91
[2024-06-15] MEDS: methylPREDNISolone 125MG 2ML VIAL IV SCH (21:07)
[2024-06-15] MEDS: GABAPENTIN 300 MG CAP PO PRN (21:13)
[2024-06-16 04:00] VITALS: BP 127/65; TEMP 97.3; O2SAT 93
[2024-06-16] MEDS ORDERED: CEFD300CAP PO (10:22)
[2024-06-16] MEDS ORDERED: PRED10TA2 PO (10:22)
== END 2024-06-16 12:10 | disposition home health service (06) | DRG 191 ==
LOC: M ED 18:25 → EDBD 18:25 → M ED INP 06-11 00:28 → M MSPAV 06-11 02:30
PROVIDERS: ADMIT Student in an Organized Health Care Education/Training Program; ATTEND Internal Medicine
PROC: BD12ZZZ Fluoroscopy of Stomach (ICD-10-PCS; principal; 2024-06-15)
DX: J44.1 Chronic obstructive pulmonary disease with (acute) exacerbation (principal); I50.32 Chronic diastolic (congestive) heart failure; J96.10 Chronic respiratory failure, unspecified whether with hypoxia or hypercapnia; E87.22 Chronic metabolic acidosis; N39.0 Urinary tract infection, site not specified; B96.20 Unspecified Escherichia coli [E. coli] as the cause of diseases classified elsewhere; K76.0 Fatty (change of) liver, not elsewhere classified; G62.9 Polyneuropathy, unspecified; M48.00 Spinal stenosis, site unspecified; R07.89 Other chest pain; R55 Syncope and collapse; I45.10 Unspecified right bundle-branch block; I44.7 Left bundle-branch block, unspecified; J40 Bronchitis, not specified as acute or chronic; R13.10 Dysphagia, unspecified; R91.8 Other nonspecific abnormal finding of lung field; Z79.899 Other long term (current) drug therapy; Z87.891 Personal history of nicotine dependence; Z11.52 Encounter for screening for COVID-19; Z90.79 Acquired absence of other genital organ(s); Z90.49 Acquired absence of other specified parts of digestive tract; Z99.81 Dependence on supplemental oxygen